=== PATIENT | female | born 1965 | race Caucasian/White ===

== ENCOUNTER 2017-01-01 20:34 | Inpatient (IN) | payer BC ==
--- NOTE | ~2017-01-01 | DS ---
Discharge Summary [facility] [address] [facility] [place]. [address] NAME: MICH MARIN : 61 STATUS : DIS Wilber PAT#: [id number] AGE: 51 ADM/REG DATE : 01/02/17 MR#: [id number] REPORT SERV DATE: 01/05/17 DICTATED BY: ALICIA RIBERA DATE: 01/04/17 REPORT STATUS : Draft TRANSCRIBED BY: JEWEL DATE: 01/04/17 ADMISSION DATE: 01/02/2017 DISCHARGE DATE: 01/04/2017 DISCHARGE DIAGNOSES: 1. Acute exacerbation of Meniere disease. 2. Status post LAGB explantation. 3. Status post sleeve gastrectomy. MEDICATIONS: At this time, she needs to resume her medications consisting of Bystolic 10 mg, carbidopa 25 mg/levodopa 100 mg, diazepam p.r.n., Dilaudid p.r.n., diphenhydramine 50 mg/mL injection p.r.n., Marinol p.r.n., meclizine 25 mg p.r.n., ondansetron 8 mg p.r.n., orphenadrine 30 mg/mL injection p.r.n. Promethazine 25 mg/mL injection p.r.n. Ropinirole 1 mg, sertraline 100 mg, topiramate 25 mg, and triamterene 37.5 mg/HCTZ 25 mg. CONDITION ON DISCHARGE: Stable and improved. DISPOSITION: Home. DIET: Clear liquid gastric diet without carbonation. ACTIVITIES: As tolerated adhering to previous postop restrictions. HISTORY: This is a 51-year-old, white female, admitted on 01/02/2017 to the emergency department with intractable nausea and vomiting. She recently underwent LAGB explantation with conversion to the sleeve gastrectomy. The vomiting created edema causing some chest pressure. She was successfully treated with IV fluids and IV Zofran, Dilaudid, and Ativan. Neurology was consulted on 01/03/2017, due to her history of Meniere disease, vestibular suppression, and geniculate neuralgia. Neurology has since signed off on her in stable condition. She is to continue her current treatment regimen. FOLLOWUP: The patient should keep her scheduled postop appointment in the office and should follow up with her neurologist in 1-2 weeks. DICTATED BY: Venus Alcantar NP [facility]/JEWEL Alicia Herrmann M.D. / [id number] CC: Alicia Ribera M.D. Discharge Summary [address] [facility] [address] NAME: MICH MARIN : 61 STATUS : DIS Wilebr PAT#: [id number] AGE: 51 ADM/REG DATE : 01/02/17 MR#: [id number] REPORT SERV DATE: 01/05/17 DICTATED BY: ALICIA RIBERA DATE: 01/04/17 REPORT STATUS : Draft TRANSCRIBED BY: JEWEL DATE: 01/04/17 Arjun Salter M.D.
--- NOTE | ~2017-01-01 | HP ---
History And Physical [place] [address] [facility] [place]. [address] NAME: MICH MARIN : 61 STATUS : ADM Wilber PAT#: [id number] AGE: 51 ADM/REG DATE : 01/02/17 MR#: [id number] REPORT SERV DATE: 01/02/17 DICTATED BY: ALICIA RIBERA DATE: 01/02/17 REPORT STATUS : Draft TRANSCRIBED BY: MODL DATE: 01/02/17 DATE OF ADMISSION: 01/02/2017 DICTATED BY: Venus Martinez RN, PAPER BAG PRESS OPERATOR-C, CBN. CHIEF COMPLAINT: Intractable nausea and vomiting with recent LAGB explantation and conversion to sleeve gastrectomy. HISTORY OF PRESENT ILLNESS: The patient is a 51-year-old white female, admitted through the emergency department this morning with complaints of intractable nausea and vomiting. She is 10-day status post LAGB explantation with conversion to sleeve gastrectomy at [facility] in [place], [place]. She was seen in office on , 12/29/2016, doing well after surgery, tolerating a clear liquid diet without vomiting. She had been advanced to a full liquid diet, and on Monday, she developed intermittent vomiting after trying protein shakes. She was able to tolerate clear liquids in between these episodes, but at some point, she had regular vomiting, limiting the amount of liquid she was able to tolerate. During this time, she continued to take her medications; however, she has not been crushing them. She additionally has a history of Meniere disease, vestibular suppression, and geniculate neuralgia, which causes regular nausea. She went without her diuretic for several days, which she feels was increasing her Meniere symptoms. PAST MEDICAL HISTORY: Past medical history significant for obesity, Meniere disease, vestibular suppression, geniculate neuralgia, anxiety, depression, hypertension, irritable bowel syndrome, and sleep apnea. PAST SURGICAL HISTORY: Original LAGB surgery in 2002, LAGB reposition and hiatal hernia repair in 2004 and band replacement in 2009 with lap-band leak, change to an APS. She underwent LAGB explantation with conversion to the sleeve gastrectomy on 12/23/2016 at [facility] in [place], [place]; cystopexy in 2011; partial hysterectomy in 2009; thigh lift in 2004; abdominoplasty in 2003; and cervical fusion in 1996. FAMILY HISTORY: Noncontributory. SOCIAL HISTORY: The patient denies nicotine use or EtOH use or abuse. MEDICATIONS: Bystolic 10 mg, carbidopa 25 mg/levodopa 100 mg, diazepam p.r.n., Dilaudid p.r.n., diphenhydramine 50 mg/mL injection p.r.n., Marinol p.r.n., meclizine 25 mg p.r.n., ondansetron 8 mg p.r.n., orphenadrine 30 mg/mL injection p.r.n., promethazine 25 mg/mL injection p.r.n., ropinirole 1 mg daily, sertraline 100 mg, topiramate 25 mg, triamterene/HCTZ 37.5 mg/25 mg daily. ALLERGIES: CIPRO, DARVOCET-N, PENICILLINS, AND PERCOCET. REVIEW OF SYSTEMS: GENERAL: This is a white female without apparent distress at this time. She reports current nausea and epigastric pain, which she rates 7/10. History And Physical [address] [address] NAME: MICH MARIN : 61 STATUS : ADM Wilber PAT#: [id number] AGE: 51 ADM/REG DATE : 01/02/17 MR#: [id number] REPORT SERV DATE: 01/02/17 DICTATED BY: ALICIA RIBERA DATE: 01/02/17 REPORT STATUS : Draft TRANSCRIBED BY: MODMariam DATE: 01/02/17 VITAL SIGNS: Stable and she is afebrile. HEENT: Pupils are equal and reactive to light. Extraocular movements are intact. Throat is clear. NECK: Supple without palpable masses. CHEST: Lungs are clear to auscultation. HEART: Regular rate and rhythm. ABDOMEN: Lap sites are healing. No erythema or drainage. Abdomen is nonrigid. Bowel sounds active x4 quadrants. No guarding. No masses. EXTREMITIES: Symmetrical and uses all extremities equally. LABORATORY DATA: CBC: White blood count 11.5, hemoglobin 14.3, hematocrit 42.0, platelets 364. Basic metabolic profile: Sodium 139, potassium 4.0, chloride 103, BUN 18, creatinine 1.08, GFR 68, glucose 170, calcium 10.1. Lipase 1026. CT of the abdomen and pelvis, mild wall-thickening of the distal esophagus. No free air or significant fluid collection noted. IMPRESSION: Intractable nausea and vomiting, recent LAGB explantation with conversion to laparoscopic sleeve gastrectomy secondary to advancement of diet/medications, Meniere disease. PLAN: The patient is n.p.o. with IV fluid hydration and treatment with IV proton pump inhibitor, antiemetic, pain medications, and antianxiety medication. We will plan to advance the patient's diet to clear liquid diet as tolerated and restart p.o. medications, but the patient will need to crash all meds. Plan on discharge home once tolerating p.o. liquids. REESE/JEWEL Alicia Herrmann M.D. / [id number] CC: Doug Puentes M.D.
--- NOTE | ~2017-01-01 | CN ---
Consultation Report [facility] [address] [place]. [address] NAME: MICH MARIN : 61 STATUS : ADM Wilber PAT#: [id number] AGE: 51 ADM/REG DATE : 01/02/17 MR#: [id number] REPORT SERV DATE: 01/04/17 DICTATED BY: TAMI CA DATE: 01/03/17 REPORT STATUS : Draft TRANSCRIBED BY: JEWEL DATE: 01/03/17 NEUROLOGY CONSULTATION DATE OF CONSULTATION: 01/03/2017 REASON FOR CONSULTATION: Meniere's disease. SURGEON: Win Maxwell M.D. HISTORY OF PRESENT ILLNESS: The patient is a 51-year-old female who is status post LAGB with conversion to sleeve gastrectomy, which occurred 10 days ago. She had this done at [facility] in [place], [place]. She seemed to be tolerating things well and was on a clear liquid diet. She was advanced to a full liquid diet when she started to have some nausea and vomiting. Her nausea and vomiting rapidly progressed to a daily occurrence and yesterday in the evening, she started to have symptoms of her Meniere's disease. Consequently, she came to the hospital for further evaluation and treatments. The patient mentions that she has struggled with Meniere's disease, she has been to several specialist. Currently, she has seen a specialist in [place], [place], who has her on a regimen that seems to work for the most part. She also has vestibular suppression and geniculate neuralgia. She has been through the [facility] in [place] and is on Topamax 200 mg daily, Benadryl 25 mg p.r.n., Marinol 5 mg t.i.d. p.r.n., Antivert 25 mg p.r.n., Phenergan 25 mg MS p.r.n., Maxzide 37.5/25 mg daily. A combination of these medications seem to work well for her. PAST MEDICAL HISTORY: Meniere's disease, vestibular suppression, geniculate neuralgia, anxiety, depression, hypertension, irritable bowel syndrome, obstructive sleep apnea (the patient wears a CPAP mask), restless legs syndrome, obesity, hypertension, chronic left ear pain (geniculate neuralgia), and chronic migraine. PAST SURGICAL HISTORY: LAGB in 2002, hiatal hernia repair in 2004, Lap Band replacement in 2009, conversion to sleeve gastrectomy in 2016, cystopexy 2011, partial hysterectomy 2009, thigh lift 2004, abdominoplasty 2003, cervical fusion 1996, endolymphatic sac compression and C3-C4 decompression. CURRENT MEDICATION LIST: ProAir inhaler 2 puffs p.r.n., Sinemet 25/100 mg one tablet at bedtime, Benadryl 25 mg p.r.n., Marinol 5 mg t.i.d. p.r.n., Dilaudid 2 mg q.6 h. p.r.n. pain, Antivert 25 mg b.i.d. p.r.n. vertigo, Bystolic 10 mg daily, Zofran 4 mg q.4 h. p.r.n. nausea, Phenergan 25 mg rectally every six hours p.r.n., Requip 1 mg daily, Requip 2 mg at bedtime, Zoloft 100 mg q.a.m., Topamax 200 mg q.p.m., and Maxzide 37.5/25 mg every day. ALLERGIES: HYDROCODONE, CODEINE, PENICILLIN, DARVON, CIPRO, TOPAMAX, AND NSAIDS. SOCIAL HISTORY: The patient is . She has 2 sons. She is unable to work due to her Meniere's. She does not smoke, drink alcohol, or use illicit. Consultation Report [address] [place]. [address] NAME: MICH MARIN : 61 STATUS : ADM Wilber PAT#: [id number] AGE: 51 ADM/REG DATE : 01/02/17 MR#: [id number] REPORT SERV DATE: 01/04/17 DICTATED BY: TAMI CA DATE: 01/03/17 REPORT STATUS : Draft TRANSCRIBED BY: MODMariam DATE: 01/03/17 FAMILY HISTORY: The patient's mother is 77 years old. She is alive and healthy. Her father is 75 years old and also healthy. She has one older brother, who is killed in a domestic dispute and one younger brother who is diabetic and obese. REVIEW OF SYSTEMS: For pertinent positives, please refer to the HPI. PHYSICAL EXAMINATION: GENERAL: The patient is a 51-year-old female who stands 5 feet 2 inches tall and weighs 223 pounds. She is afebrile. Heart rate 70, respiratory rate 16, O2 sats on room air 95%, blood pressure 95/52. NEURO: The patient is alert. She is oriented x4 and pleasant, communicates appropriately. Pupils 5 mm. PERRLA. Cranial nerves 2 through 12 are intact. She can move all extremities x4. There is no focal deficits noted. NECK: No carotid bruits, JVD, or thyromegaly. CHEST: Lung sounds clear. CARDIAC: Regular rate and rhythm. LABORATORY DATA: CBC relatively normal. White count is mildly elevated at 11.5. BMP relatively normal although serum bicarbonate 18 and glucose of 170, lipase 1026. Chest x- ray, no acute changes. ASSESSMENT/PLAN: 1. Acute exacerbation of Meniere's disease. At this point, the patient is comfortable and I will make no changes in her medications and p.r.n. medications. 2. Vestibular suppression. 3. Geniculate neuralgia. 4. Mild leukocytosis with an elevated lipase, this will be managed per attending. 5. Mild metabolic acidosis, most likely due to Topamax therapy. Thank you again for including us in consultation. At this point, we will sign off, but we are available on a p.r.n. basis if the patient needs further assistance. Thank you again for including us in consultation. We will continue to follow with you. SUKH/JEWEL KELLY Membreno / [id number] CC: Consultation Report [address] [place]. [address] NAME: MICH MARIN : 61 STATUS : ADM Wilber PAT#: [id number] AGE: 51 ADM/REG DATE : 01/02/17 MR#: [id number] REPORT SERV DATE: 01/04/17 DICTATED BY: TAMI CA DATE: 01/03/17 REPORT STATUS : Draft TRANSCRIBED BY: JEWEL DATE: 01/03/17 Doug Puentes M.D.
[~2017-01-01 20:34] MED LIST: AMERGE2.5 MG PO; BEN25 PO; BEN50P IM; BYSTOLIC10 MG PO; CEFT5 PO; COMP10B PO; COMPRO25 MG PR; COZ50 PO; DEPAK250ER PO; DEPAKOTE PO; DIL2TAB PO; DRAMAMINE25 MG PO; HYCODAN1 M1 PO; ICY HOT51 TOP; K-TABS10 MEQ PO; LEVAQUIN750 MG PO; LORTAB10 PO; MAGOX4 PO; MARI5 PO; MAX25 PO; MCZ25 PO; MIRALAXPKT PO; OFLOXACIN OT; OTC POTASSIUM PO; P10; P10 PO; P5 PO; PEP20 PO; PHENADOZ25 MG RE; PHENERGAN 2525 MG/M1 IM; PHENERGAN 2525 MG/ML IM; POTASSIUM OTC PO; POTASSIUM95 MG PO; PR25 PO; PR25R PR; PROAIR HFA INH; PROAIR HFA PO; PROTONIX PO; PROVHFA INH; REQUIP1 PO; REQUIP2 PO; REQUIP5 PO; SIN25 PO; SINGULAIR1 PO; STERAPRED DS10 MG; ULTRAM50 PO; V2 PO; V5 PO; VICODINTAB PO; VIVELLE SY0.1 MG/24 TOP; VIVELLE-DOT0.025 MG TOP; Z-PAK PO; ZOFRAN2ML IM; ZOFRAN4 PO; ZOFRAN8 PO; ZOFRANODT8 PO; ZOL100 PO; ZOL50 PO; ZOLOFT25 MG PO; ZYRTEC ALLGY10 MG PO; [UNRECOGNIZED DRUG - OTHER] PO
[2017-01-01 21:25] LABS: BASOPHILS 0.7 %; BASOPHILS ABSOLUTE 0.08 10/3/uL (0.0-0.16); EOSINOPHILS 0.4 %; EOSINOPHILS ABSOLUTE 0.05 10/3/uL (0.0-0.53); HEMOGLOBIN 14.3 g/dL (12.0-16.0); IMMATURE GRANULOCYTES ABSOLUTE 0.11 10/3/uL (0.0-0.11); LYMPHOCYTES 12.9 %; LYMPHOCYTES ABSOLUTE 1.48 10/3/uL (0.67-4.30); MEAN CORPUSCULAR HEMOGLOB 30.3 pg (26.0-34.0); MEAN PLATELET VOLUME 9.5 fL (9.2-13.0); MONOCYTES 2.6 %; NEUTROPHILS 82.4 %; NEUTROPHILS ABSOLUTE 9.47 10/3/uL (2.02-8.40); RBC DISTRIBUTION WIDTH 13.4 % (12.0-16.0); RED CELL COUNT 4.72 10/6/uL (4.0-5.6)
[2017-01-01 21:26] LABS: ER CBC TAT 0 Hrs 08 Mins; MANUAL DIFF NO %; PLATELET COUNT 364 10/3/uL (150-400); WHITE BLOOD CELLS 11.5 10/3/uL (4.5-10.5)
[2017-01-01 21:43] LABS: A/G RATIO 0.9 (0.7-1.9); ALBUMIN 3.9 G/DL (3.5-5.0); ALKALINE PHOSPHATASE 102 U/L (45-117); CALCIUM, SERUM 10.1 MG/DL (8.5-10.4); CHLORIDE, SERUM 103 MMOL/L (96-112); CREATININE 1.08 MG/DL (0.55-1.02); GFR AFRICAN AMERICAN 68 ML/MIN (>=60); GFR NON AFRICAN AMERICAN 59 ML/MIN (>=60); SGOT(AST) 22 U/L (5-40); SGPT(ALT) 28 U/L (5-65); SODIUM, SERUM 139 MMOL/L (135-148); TOTAL BILIRUBIN 0.5 MG/DL (0-1.2)
[2017-01-01 21:47] LABS: BUN (BLOOD UREA NITROGEN) 18 MG/DL (6-23); CO2 (CARBON DIOXIDE) 18 MMOL/L (24-34); GLOBULIN 4.5 G/DL (2.5-4.1); GLUCOSE, SERUM 170 MG/DL (60-99); TOTAL PROTEIN 8.4 G/DL (6.0-8.5)
[2017-01-02 03:52] LABS: ASCORBIC ACID (UR NOT ORDER) 20 (NEG); BILIRUBIN, URINE NEGATIVE (NEG); ER URINALYSIS TAT 0 Hrs 00 Mins; KETONE, URINE 80 MG/DL (NEG); LEUKOCYTE ESTERASE(NOT OR NEG (NEG); NITRITE (URINE) NEG (NEG); WBC (NOT ORDERED) (RFLEX) 2 (0-5)
[2017-01-02] MEDS ORDERED: TOPAMAX200 MG PO (09:29)
[2017-01-04] MEDS ORDERED: SUCR PO (12:46)
[2017-05-02] MEDS ORDERED: PROAIR HFA INH (11:34)
[2017-05-02] MEDS ORDERED: DIL4TAB PO (11:37)
[2017-05-02] MEDS ORDERED: DIL2AMP IM (11:39)
== END 2017-01-04 15:45 | disposition home or self-care (01) | DRG 149 ==
LOC: ER 20:34 → 4SO 01-02 05:49
PROVIDERS: Specialist
DX: H81.09 Meniere's disease, unspecified ear (principal); Z99.81 Dependence on supplemental oxygen; R11.2 Nausea with vomiting, unspecified; G58.8 Other specified mononeuropathies; F41.9 Anxiety disorder, unspecified; F32.9 Major depressive disorder, single episode, unspecified; I10 Essential (primary) hypertension; K58.9 Irritable bowel syndrome, unspecified; G89.29 Other chronic pain; G47.33 Obstructive sleep apnea (adult) (pediatric); G25.81 Restless legs syndrome; H92.02 Otalgia, left ear; E66.01 Morbid (severe) obesity due to excess calories; Z88.0 Allergy status to penicillin; Z88.1 Allergy status to other antibiotic agents; Z88.5 Allergy status to narcotic agent; Z98.84 Bariatric surgery status; Z98.890 Other specified postprocedural states
CPT/HCPCS: 71010; 74176; 80053; 81001; 83690; 84703; 85025; 93005; 96374; 96375; 96376; 99285; A9270-GY; C9113; G0378; J1170; J2405; J2550

== ENCOUNTER 2017-01-10 04:53 | Inpatient (IN) | payer BC ==
--- NOTE | ~2017-01-10 | IDS ---
Interim Discharge Summary [facility] [address] [place]. [address] NAME: MICH MARIN : 61 STATUS : ADM Wilber PAT#: [id number] AGE: 51 ADM/REG DATE : 01/10/17 MR#: [id number] REPORT SERV DATE: 01/16/17 DICTATED BY: NELLIE BERNAL DATE: 01/15/17 REPORT STATUS : Draft TRANSCRIBED BY: MODL DATE: 01/15/17 ADMISSION DATE: 01/10/2017 DISCHARGE DATE: INTERIM DISCHARGE DIAGNOSES: 1. Meniere's disease. 2. Intractable nausea and vomiting secondary to Meniere's disease. 3. Hypokalemia. 4. Obesity. 5. Obstructive sleep apnea. 6. Hypertension. 7. Mild metabolic acidosis. 8. Acute renal insufficiency. HOSPITAL COURSE: The patient was admitted for further management of intractable nausea and vomiting secondary to Meniere's disease. Supportive treatment with IV fluids, which resolved acute renal insufficiency. Neurology has been following with us. Further details per Neurology note. The patient has been on IV antiemetics, thiamine, and Topamax. Vomiting has resolved with conservative management. We are now titrating the patient off IV pain medication. IV antiemetics. Maxzide was restarted on 01/15/2017. Unable to restart prior due to borderline blood pressure and renal insufficiency. PLAN: Plan is to have patient on home regimen in 24 to 48 hours. Decrease Ativan as directed. Decrease pain regimen. Change Phenergan to p.o. The patient medically stable once cleared by Neurology in 24 to 48 hours. Further management per clinical course. ISMAEL/JEWEL Ino Chan MD / [id number] CC: MD Arjun Leija M.D.
--- NOTE | ~2017-01-10 | DS ---
Discharge Summary [place] [address] [facility] [place]. [address] NAME: MICH MARIN : 61 STATUS : DIS IN PAT#: [id number] AGE: 51 ADM/REG DATE : 01/10/17 MR#: [id number] REPORT SERV DATE: 01/19/17 DICTATED BY: BYRON OWENS DATE: 01/18/17 REPORT STATUS : Draft TRANSCRIBED BY: MODMariam DATE: 01/18/17 ADMISSION DATE: 01/10/2017 DISCHARGE DATE: 01/18/2017 DISCHARGE DIAGNOSES: Include: 1. Meniere disease and vertigo. 2. Intractable nausea and vomiting. 3. Acute kidney injury, which has resolved, most recent creatinine 1.04. 4. Migraine headaches. 5. Obesity status post recent gastric sleeve surgery on 12/23/2016. 6. History of obstructive sleep apnea and restless legs syndrome. 7. Hypertension. DISCHARGE MEDICATIONS: As follows: Sinemet 25/100 one tab at bedtime; Antivert 25 mg twice a day p.r.n. for vertigo; Phenergan 25 mg IM every hours p.r.n. for nausea; Bystolic 10 mg p.o. daily; Zofran 8 mg p.o. every hours p.r.n. for nausea; Requip 1 mg daily in the morning, Requip 2 mg p.o. at bedtime; Zoloft 100 mg daily; Topamax 100 mg p.o. with supper; Maxzide 25 mg/37.5 mg tab daily; multivitamin one tab daily; ProAir inhaler two puffs inhaled three times a day p.r.n. for shortness of breath; Valium 5 mg daily p.r.n. for dizziness; Benadryl 50 mg IM every eight hours p.r.n. for migraines; Zofran 8 mg IM every eight hours p.r.n. for nausea; Phenergan suppositories p.r.n.; Marinol 5 mg every eight hours p.r.n. for nausea and vomiting; Dilaudid 2 mg every 6 hours p.r.n. for migraines; Norflex 30 mg IM q.12 hours p.r.n. for migraines. HISTORY OF PRESENT ILLNESS: A 51-year-old, white female, who originally presented with intractable nausea and vomiting. Please see initial H and P of Dr. Scarlet Quiros. This patient is admitted to the Hospitalist Service for further evaluation and treatment. She was given IV hydration, p.r.n. antiemetic control, pain control, and lab work was ordered and followed. CONSULTANTS DURING THIS ADMISSION: Include Neurology Dr. Nancy Smith. Please also see the interim discharge summary of Dr. Ino Chan. PROCEDURES AND IMAGING DURING THIS ADMISSION: Include a CT of the abdomen and pelvis showing a prior gastric sleeve bypass, stable. No other acute GI or obstruction. Nonobstructing kidney stone on the right and prior hysterectomy. CONTINUATION OF HOSPITAL COURSE: I began seeing the patient on 01/17/2017 where she was still having some nausea and an episode of emesis, however, it was somewhat improved according to the patient overall. She was given a trial of Reglan IV x3 doses but the patient actually only received two doses of Reglan. Her symptoms improved the following day, on 01/18/2017. She was able to eat dinner and breakfast with no problems. Her nausea had subsided. No vomiting. She was able to ambulate in the room without difficulty. Orthostatics were checked which were within normal limits, and she was felt safe for discharge home on 01/18/2017 with the above medication regimen, and I have instructed her to follow up with her primary care, Dr. Salter in three to four weeks and to follow up Discharge Summary [address] [address] NAME: MICH MARIN : 61 STATUS : DIS IN PAT#: [id number] AGE: 51 ADM/REG DATE : 01/10/17 MR#: [id number] REPORT SERV DATE: 01/19/17 DICTATED BY: BYRON OWENS DATE: 01/18/17 REPORT STATUS : Draft TRANSCRIBED BY: JEWEL DATE: 01/18/17 outpatient with Psychiatry given her lengthy history of antidepressant use. The patient was agreement with this plan going forward. Questions were answered at bedside. Please note, greater than 30 minutes was spent on this discharge for medication teaching, followup planning, and further disposition. COREY/JEWEL Byron Owens NP / [id number] CC: Doug Key M.D.
--- NOTE | ~2017-01-10 | HP ---
History And Physical [facility] [address] [facility] [place]. [address] NAME: MICH MARIN : 61 STATUS : ADM Wilber PAT#: [id number] AGE: 51 ADM/REG DATE : 01/10/17 MR#: [id number] REPORT SERV DATE: 01/10/17 DICTATED BY: GERARD QUIROS DATE: 01/10/17 REPORT STATUS : Draft TRANSCRIBED BY: MODMariam DATE: 01/10/17 DATE OF ADMISSION: 01/10/2017 CHIEF COMPLAINT: Intractable nausea, vomiting. HISTORY OF PRESENT ILLNESS: The patient is a very pleasant, 51-year-old, white female, who has also with a history of recent conversion of her lap band to gastric sleeve on 12/23/2016. She was admitted on January 02 with intractable nausea and vomiting. It was felt that some of this is due to her Meniere disease. She was seen by Neurology and ultimately she went home, was better. She states soon after leaving, she developed recurrent nausea, vomiting, dizziness, feeling poor, having headache, just cannot keep anything down, dry heaving; when she started dry heaving, then she started having some mid abdominal pain. She presented to [facility] last evening with the above aforementioned complaints. She has had no fevers or chills. No diarrhea. She saw Dr. Manzano yesterday and swallowed some contrast. It looks like everything passed through according to her and she states, she also had some laboratory work done as well and was given some IV fluids and some IV Phenergan. She ultimately went home, but continued to have nausea and vomiting and returned today. PAST MEDICAL HISTORY: 1. Meniere's. 2. Recent gastric sleeve, converted from a lap band. 3. Morbid obesity. 4. Vestibular suppression. 5. Geniculate neuralgia. 6. Anxiety. 7. Depression. 8. Hypertension. 9. IBS. 10.CORI. 11.Migraines. ALLERGIES: DARVOCET, PENICILLIN, PERCOCET, AND CIPRO. SOCIAL HISTORY: She is . Does not drink or smoke. FAMILY HISTORY: Her brother had diabetes and obesity. PAST SURGICAL HISTORY: She had a gastric band, then converted to a gastric sleeve. She had a hernia repair, cystopexy, partial hysterectomy, abdominoplasty, and a cervical fusion. HOME MEDICATIONS: Pending. REVIEW OF SYSTEMS: Full ten-point review of systems obtained. Pertinent positives mentioned in the HPI. History And Physical [address] [place]. [address] NAME: MICH MARIN : 61 STATUS : ADM Wilber PAT#: [id number] AGE: 51 ADM/REG DATE : 01/10/17 MR#: [id number] REPORT SERV DATE: 01/10/17 DICTATED BY: GERARD QUIROS DATE: 01/10/17 REPORT STATUS : Draft TRANSCRIBED BY: JEWEL DATE: 01/10/17 PHYSICAL EXAMINATION: CURRENT VITAL SIGNS: Are as follows: BP 112/68, sats 96%, pulse 98, respiratory rate 19, temperature was 97.9. GENERAL: Morbidly obese white female, in no apparent distress. HEENT: Normocephalic, atraumatic. Pupils are equal, round, and reactive. TMs are clear bilaterally. Throat is clear. NECK: Supple. HEART: Regular rate and rhythm. LUNGS: Grossly clear. ABDOMEN: Soft, nontender, nondistended. She has some healing incisions, looked quite good. She has bowel sounds. EXTREMITIES: Warm and dry. SKIN: Intact without obvious rash or lesion. LABORATORY AND X-RAY: Electrolyte panel shows electrolytes are normal. Glucose is 115. CBC is essentially normal. Followup BMP today that was from yesterday; her potassium was low at 3.2 with a CO2 of 20 and a glucose of 145. LFTs are otherwise normal. Lipase was 1104. Urinalysis today is negative other than some ketones. ASSESSMENT/PLAN: 1. Intractable nausea and vomiting with history of Meniere disease. Certainly, this could be the exacerbating issue. Difficult to control when she cannot keep her p.o. medications down. I am going to admit her to the hospital and provide aggressive fluid resuscitation. We will provide some p.r.n. medications, which I think should help. We will schedule her Zofran, provide p.r.n. Phenergan. We will also add some IV Ativan as needed, and she is requesting Marinol, which has helped tremendously in the past. We are going to write for that. If she has pain, she can take some IV Dilaudid. She does have migraines and her head turning. We will have Neurology see her in consultation. Given that she does have some mild abdominal pain, and she recently had a surgical procedure on her abdomen, I think we are obliged to do a CT scan of her abdomen and pelvis to rule out obstruction or other causes. Her lipase was mildly up in the 1100 range. We will check an amylase and follow up her CT scan to make sure there is not some component of pancreatitis, although her pain is not consistent with this. 2. Hypokalemia, replace. 3. Meniere disease with possible exacerbation. See #1. 4. Obesity. 5. Geniculate neuralgia. She does have some ear pain currently. 6. Anxiety and depression. 7. Obstructive sleep apnea. 8. Deep venous thrombosis prophylaxis with subcutaneous Lovenox. 9. Disposition, pending above aforementioned plan and workup. CHERRI/JEWEL Gerard Rojas History And Physical [address] [address] NAME: MICH MARIN : 61 STATUS : ADM Wilber PAT#: [id number] AGE: 51 ADM/REG DATE : 01/10/17 MR#: [id number] REPORT SERV DATE: 01/10/17 DICTATED BY: GERARD QUIROS DATE: 01/10/17 REPORT STATUS : Draft TRANSCRIBED BY: JEWEL DATE: 01/10/17 Doug Quiros / [id number] CC: MD Arjun Leija M.D. Jaime Ponce-Portugal, M.D.
--- NOTE | ~2017-01-10 | CN ---
Consultation Report [facility] [address] [place]. [address] NAME: MICH MARIN : 61 STATUS : ADM Wilber PAT#: [id number] AGE: 51 ADM/REG DATE : 01/10/17 MR#: [id number] REPORT SERV DATE: 01/10/17 DICTATED BY: DATE: REPORT STATUS : Draft TRANSCRIBED BY: MODL DATE: 01/10/17 NEUROLOGY CONSULTATION DATE OF CONSULTATION: 01/10/2017 REASON FOR CONSULT: Intractable nausea and vomiting, history of Meniere's disease. HISTORY OF PRESENT ILLNESS: This is a 51-year-old white female with a history of Meniere's disease, seen currently by specialists in [place], presented to [facility] secondary to intractable nausea and vomiting. The patient does have a history of recent gastric sleeve as well as a gastric banding removal with the patient afterwards was noted to have intractable nausea and vomiting, subsequently treated with IV medication with stabilization of the symptom and discharged. The patient reports the most recent symptoms started roughly three to four days ago with the patient denies noticeable aggravating or relieving factors. The patient does report some mild worsening of tinnitus as well as vertigo sensation with the patient's symptom worsened when the patient turning to the left. Otherwise, the patient denies any focal weakness, but does report some mild generalized weakness. Denies any hearing loss and denies any ear fullness at the time of evaluation. The patient does denies any dysarthria and denies any aphasia. She denies any significant abdominal pain, except when the patient has severe nausea and vomiting. The patient has some mild abdominal discomfort. The patient does have a history of multiple similar events in the past associated with exacerbation of Meniere's disease, usually treated with a combination of IV Zofran, Phenergan, benzodiazepine as well as p.o. Marinol. With the patient at baseline on hydrochlorothiazide, but does not appear to have a history of Lasix treatment. The patient reports a history of ear fullness sensation with volume overloading which the patient currently denies. Otherwise, the patient denies any other recent illness, fever, chill, nausea, and vomiting, any other changes in medication recently. PAST MEDICAL HISTORY: The patient does have past medical history of recent gastric sleeve surgery as well as Meniere's disease, vestibular suppression, as well as geniculate neuralgia, anxiety, depression, irritable bowel syndrome, obstructive sleep apnea, restless legs syndrome, obesity, hypertension, chronic left ear pain secondary to geniculate neuralgia and chronic migraine, and history of previous gastric banding and removal as well as recent gastric sleeve. SOCIAL HISTORY: Denies tobacco, alcohol, or recreational drug usage. FAMILY HISTORY: Significant for diabetes and obesity. Otherwise, no other significant family history. ALLERGIES: THE PATIENT WAS NOTED TO HAVE A HISTORY OF ALLERGY TO PENICILLIN, CIPROFLOXACIN, LORCET, PERCOCET, NONSTEROIDAL ANTI-INFLAMMATORY MEDICATION, PROPOXYPHENE. HOME MEDICATIONS: The patient's home medications consist of albuterol, Sinemet, Valium, Consultation Report [address] [place]. [address] NAME: MICH MARIN : 61 STATUS : ADM Wilber PAT#: [id number] AGE: 51 ADM/REG DATE : 01/10/17 MR#: [id number] REPORT SERV DATE: 01/10/17 DICTATED BY: DATE: REPORT STATUS : Draft TRANSCRIBED BY: MODL DATE: 01/10/17 Benadryl, Marinol, Dilaudid, meclizine, Bystolic, Zofran, Norflex, Phenergan, Requip, Zoloft, Topamax, Maxzide, and ondansetron injection. REVIEW OF SYSTEMS: Otherwise, negative except for those mentioned in the HPI. PHYSICAL EXAMINATION: VITAL SIGNS: The patient noted to have vital signs with T-max of 98.2, heart rate of 87 to 90, respiration of 17 to 18, blood pressure of 118 to 155 over 69 to 84. GENERAL: The patient is well developed, well nourished, in no acute distress. CARDIOVASCULAR: Regular rate and rhythm. No carotid bruits were otherwise auscultated. PULMONARY: Clear to auscultation bilaterally. ABDOMEN: No abdominal tenderness was noted at the time of evaluation. No rebound or guarding was appreciated. NEUROLOGICAL EXAMINATION: Generally, the patient is alert and oriented x3 to person, place, year, and month and follows simple and 2-step commands. No dysarthria or aphasia was otherwise appreciated. Intact registration and recall. Cranial nerves II through XII, pupils equal, round, and reactive to light. Intact extraocular eye movement at the time of evaluation, however, the patient was noted to have trace nystagmus with a leftward gaze movement. Intact blink to threat response. Symmetrical facial expression and sensation. Midline tongue. Normal palatal movement. Does not appear to have any decreased hearing at the time of evaluation. 5/5 bilateral upper and lower extremity strength. Symmetrical sensation bilaterally. Normal [id number] examination without ataxia. 2+ reflexes bilaterally. Gait was not evaluated secondary to the patient's vertigo sensation as well as nausea and vomiting. LABORATORY STUDY: Demonstrates sodium 142, potassium of 3.2, chloride of 106, bicarb of 20, BUN of 8, creatinine of 0.93, glucose of 145, calcium of 8.8. Amylase level 145 and a lipase of 1104. White blood cell count of 9.6, hemoglobin of 13.2, hematocrit of 38.8, and platelet count of 333. Urinalysis demonstrated negative leukocyte esterase, negative nitrite. CT scan of the abdomen and pelvis obtained on 01/02/2017 demonstrated no acute process. No comments of pancreatitis. The patient does currently have CT scan of the abdomen and pelvis pending. IMPRESSION: 1. Nausea and vomiting, recent gastric sleeve surgery with nausea and vomiting afterwards. The patient's most recent episode of nausea and vomiting occurred roughly three to four days ago with the patient noted to have similar events with the previous Meniere's disease exacerbation that was treated by IV Zofran, Phenergan, benzodiazepine as well as the p.o. Marinol. We will add IV thiamine to current regimen. The patient was also noted to have persistent elevation of her lipase as well as amylase compared to the previous hospitalization also concerning for possible elevation of her lipase and Consultation Report [address] [place]. [address] NAME: MICH MARIN : 61 STATUS : ADM Wilber PAT#: [id number] AGE: 51 ADM/REG DATE : 01/10/17 MR#: [id number] REPORT SERV DATE: 01/10/17 DICTATED BY: DATE: REPORT STATUS : Draft TRANSCRIBED BY: MODL DATE: 01/10/17 amylase secondary to intractable nausea and vomiting versus a recent gastric surgery versus a possible pancreatitis. However, on examination, the patient does not have any abdominal tenderness to palpation and the previous CT scan is otherwise negative and making pancreatitis seems less likely. 2. Meniere's disease. The patient is to follow up with neurologist at [place] alter stabilization of acute symptom. RECOMMENDATION: 1. IV Zofran and Phenergan. 2. IV Ativan. 3. Continue Marinol. 4. We will start the patient on IV thiamine. 5. CT abdomen and pelvis pending. 6. Repeat amylase and lipase level in the morning. CCH/MODL Juan Antonio Smith MD / [id number] CC: MD Arjun Leija M.D.
[2017-01-10 01:20] LABS: BASOPHILS 0.6 %; BASOPHILS ABSOLUTE 0.06 10/3/uL (0.0-0.16); EOSINOPHILS 1.9 %; EOSINOPHILS ABSOLUTE 0.18 10/3/uL (0.0-0.53); HEMATOCRIT 38.8 % (36.0-48.0); HEMOGLOBIN 13.2 g/dL (12.0-16.0); IMMATURE GRANULOCYTES 0.3 %; IMMATURE GRANULOCYTES ABSOLUTE 0.03 10/3/uL (0.0-0.11); LYMPHOCYTES 15.5 %; LYMPHOCYTES ABSOLUTE 1.48 10/3/uL (0.67-4.30); MEAN CORPUSCULAR HEMOGLOB 30.2 pg (26.0-34.0); MEAN CORPUSCULAR VOLUME 88.8 fL (80-100); MEAN PLATELET VOLUME 9.4 fL (9.2-13.0); MONOCYTES ABSOLUTE 0.38 10/3/uL (0.21-1.20); NEUTROPHILS 77.7 %; NEUTROPHILS ABSOLUTE 7.42 10/3/uL (2.02-8.40); PLATELET COUNT 337 10/3/uL (150-400); RBC DISTRIBUTION WIDTH 13.8 % (12.0-16.0); RED CELL COUNT 4.37 10/6/uL (4.0-5.6); WHITE BLOOD CELLS 9.6 10/3/uL (4.5-10.5)
[2017-01-10 01:24] LABS: ER CBC TAT 0 Hrs 05 MinsNP; MANUAL DIFF NO %
[2017-01-10 01:36] LABS: ALBUMIN 3.8 G/DL (3.5-5.0); BUN (BLOOD UREA NITROGEN) 8 MG/DL (6-23); CALCIUM, SERUM 8.8 MG/DL (8.5-10.4); CHLORIDE, SERUM 106 MMOL/L (96-112); CREATININE 0.93 MG/DL (0.55-1.02); GFR AFRICAN AMERICAN 81 ML/MIN (>=60); GFR NON AFRICAN AMERICAN 70 ML/MIN (>=60); POTASSIUM, SERUM 3.2 MMOL/L (3.5-5.3); SGOT(AST) 18 U/L (5-40); SGPT(ALT) 29 U/L (5-65); SODIUM, SERUM 142 MMOL/L (135-148); TOTAL BILIRUBIN 0.5 MG/DL (0-1.2); TOTAL PROTEIN 7.1 G/DL (6.0-8.5)
[2017-01-10 01:40] LABS: A/G RATIO 1.2 (0.7-1.9); ALKALINE PHOSPHATASE 90 U/L (45-117); CO2 (CARBON DIOXIDE) 20 MMOL/L (24-34); GLOBULIN 3.3 G/DL (2.5-4.1); GLUCOSE, SERUM 145 MG/DL (60-99)
[~2017-01-10 04:53] MED LIST changes: +SUCR PO; +TOPAMAX200 MG PO
[2017-01-10 05:48] LABS: ASCORBIC ACID (UR NOT ORDER) 40 (NEG); BILIRUBIN, URINE NEGATIVE (NEG); ER URINALYSIS TAT 0 Hrs 00 Mins; KETONE, URINE 80 MG/DL (NEG); LEUKOCYTE ESTERASE(NOT OR NEG (NEG); NITRITE (URINE) NEG (NEG); WBC (NOT ORDERED) (RFLEX) 3 (0-5)
[2017-01-10] MEDS ORDERED: REQUIP2 PO (10:12)
[2017-01-10] MEDS ORDERED: REQUIP1 PO (10:12)
[2017-01-10] MEDS ORDERED: ZOL100 PO (10:13)
[2017-01-10] MEDS ORDERED: MAX25 PO (10:13)
[2017-01-10] MEDS ORDERED: TOPAMAX100 PO (10:14)
[2017-01-10] MEDS ORDERED: SIN25 PO (10:14)
[2017-01-10] MEDS ORDERED: BYSTOLIC10 MG PO (10:15)
[2017-01-10] MEDS ORDERED: MCZ25 PO (10:16)
[2017-01-10] MEDS ORDERED: MULTIVIT/MIN PO (10:16)
[2017-01-10] MEDS ORDERED: PROAIR HFA INH (10:17)
[2017-01-10] MEDS ORDERED: V5 PO (10:18)
[2017-01-10] MEDS ORDERED: BEN50P IM (10:19)
[2017-01-10] MEDS ORDERED: ZOFRANODT8 PO (10:20)
[2017-01-10] MEDS ORDERED: ONDANSETRON IM (10:20)
[2017-01-10] MEDS ORDERED: PHENERGAN 2525 MG/M1 IM (10:21)
[2017-01-10] MEDS ORDERED: PR25R PR (10:21)
[2017-01-10] MEDS ORDERED: [UNRECOGNIZED DRUG - OTHER] IM (10:22)
[2017-01-10] MEDS ORDERED: MARI5 PO (10:22)
[2017-01-10] MEDS ORDERED: DIL2TAB PO (10:23)
[2017-01-11 05:39] LABS: BASOPHILS 0.1 %; BASOPHILS ABSOLUTE 0.01 10/3/uL (0.0-0.16); EOSINOPHILS 0.1 %; EOSINOPHILS ABSOLUTE 0.01 10/3/uL (0.0-0.53); HEMATOCRIT 35.1 % (36.0-48.0); HEMOGLOBIN 11.4 g/dL (12.0-16.0); IMMATURE GRANULOCYTES 0.2 %; IMMATURE GRANULOCYTES ABSOLUTE 0.03 10/3/uL (0.0-0.11); LYMPHOCYTES 17.8 %; LYMPHOCYTES ABSOLUTE 2.24 10/3/uL (0.67-4.30); MEAN CORPUS HGB CONC 32.5 g/dL (32.0-36.0); MEAN CORPUSCULAR HEMOGLOB 29.7 pg (26.0-34.0); MEAN CORPUSCULAR VOLUME 91.4 fL (80-100); MEAN PLATELET VOLUME 9.1 fL (9.2-13.0); MONOCYTES 5.6 %; MONOCYTES ABSOLUTE 0.71 10/3/uL (0.21-1.20); NEUTROPHILS 76.2 %; PLATELET COUNT 265 10/3/uL (150-400); RBC DISTRIBUTION WIDTH 14.6 % (12.0-16.0); RED CELL COUNT 3.84 10/6/uL (4.0-5.6); WHITE BLOOD CELLS 12.6 10/3/uL (4.5-10.5)
[2017-01-11 05:41] LABS: MANUAL DIFF NO %
[2017-01-11 05:58] LABS: BUN (BLOOD UREA NITROGEN) 7 MG/DL (6-23); CALCIUM, SERUM 8.6 MG/DL (8.5-10.4); CHLORIDE, SERUM 114 MMOL/L (96-112); CO2 (CARBON DIOXIDE) 22 MMOL/L (24-34); CREATININE 0.91 MG/DL (0.55-1.02); GFR AFRICAN AMERICAN 83 ML/MIN (>=60); GFR NON AFRICAN AMERICAN 72 ML/MIN (>=60); POTASSIUM, SERUM 3.5 MMOL/L (3.5-5.3); SODIUM, SERUM 148 MMOL/L (135-148)
[2017-01-11 05:59] LABS: GLUCOSE, SERUM 100 MG/DL (60-99)
[2017-01-12 04:42] LABS: BASOPHILS 0.4 %; BASOPHILS ABSOLUTE 0.04 10/3/uL (0.0-0.16); EOSINOPHILS 1.4 %; EOSINOPHILS ABSOLUTE 0.15 10/3/uL (0.0-0.53); HEMATOCRIT 33.9 % (36.0-48.0); HEMOGLOBIN 11.1 g/dL (12.0-16.0); IMMATURE GRANULOCYTES 0.4 %; IMMATURE GRANULOCYTES ABSOLUTE 0.04 10/3/uL (0.0-0.11); LYMPHOCYTES 25.7 %; LYMPHOCYTES ABSOLUTE 2.77 10/3/uL (0.67-4.30); MEAN CORPUS HGB CONC 32.7 g/dL (32.0-36.0); MEAN CORPUSCULAR HEMOGLOB 30.2 pg (26.0-34.0); MEAN CORPUSCULAR VOLUME 92.4 fL (80-100); MEAN PLATELET VOLUME 9.7 fL (9.2-13.0); MONOCYTES 5.2 %; MONOCYTES ABSOLUTE 0.56 10/3/uL (0.21-1.20); NEUTROPHILS 66.9 %; NEUTROPHILS ABSOLUTE 7.22 10/3/uL (2.02-8.40); PLATELET COUNT 262 10/3/uL (150-400); RBC DISTRIBUTION WIDTH 14.9 % (12.0-16.0); RED CELL COUNT 3.67 10/6/uL (4.0-5.6); WHITE BLOOD CELLS 10.8 10/3/uL (4.5-10.5)
[2017-01-12 04:45] LABS: MANUAL DIFF NO %
[2017-01-12 05:22] LABS: BUN (BLOOD UREA NITROGEN) 6 MG/DL (6-23); CALCIUM, SERUM 8.7 MG/DL (8.5-10.4); CHLORIDE, SERUM 115 MMOL/L (96-112); CO2 (CARBON DIOXIDE) 21 MMOL/L (24-34); CREATININE 1.07 MG/DL (0.55-1.02); GFR AFRICAN AMERICAN 69 ML/MIN (>=60); GFR NON AFRICAN AMERICAN 59 ML/MIN (>=60); GLUCOSE, SERUM 90 MG/DL (60-99); POTASSIUM, SERUM 3.1 MMOL/L (3.5-5.3); SODIUM, SERUM 148 MMOL/L (135-148)
[2017-01-13 04:15] LABS: BASOPHILS 0.5 %; BASOPHILS ABSOLUTE 0.03 10/3/uL (0.0-0.16); EOSINOPHILS 2.9 %; EOSINOPHILS ABSOLUTE 0.19 10/3/uL (0.0-0.53); HEMATOCRIT 35.2 % (36.0-48.0); HEMOGLOBIN 11.5 g/dL (12.0-16.0); IMMATURE GRANULOCYTES 0.5 %; IMMATURE GRANULOCYTES ABSOLUTE 0.03 10/3/uL (0.0-0.11); LYMPHOCYTES 29.8 %; LYMPHOCYTES ABSOLUTE 1.93 10/3/uL (0.67-4.30); MEAN CORPUS HGB CONC 32.7 g/dL (32.0-36.0); MEAN CORPUSCULAR HEMOGLOB 29.2 pg (26.0-34.0); MEAN PLATELET VOLUME 9.6 fL (9.2-13.0); MONOCYTES 6.2 %; NEUTROPHILS 60.1 %; PLATELET COUNT 249 10/3/uL (150-400); RBC DISTRIBUTION WIDTH 14.7 % (12.0-16.0); RED CELL COUNT 3.94 10/6/uL (4.0-5.6); WHITE BLOOD CELLS 6.5 10/3/uL (4.5-10.5)
[2017-01-13 04:25] LABS: MANUAL DIFF NO %; MEAN CORPUSCULAR VOLUME 89.3 fL (80-100)
[2017-01-13 04:28] LABS: CALCIUM, SERUM 8.8 MG/DL (8.5-10.4); CHLORIDE, SERUM 110 MMOL/L (96-112); CO2 (CARBON DIOXIDE) 22 MMOL/L (24-34); GFR AFRICAN AMERICAN 74 ML/MIN (>=60); GFR NON AFRICAN AMERICAN 64 ML/MIN (>=60); GLUCOSE, SERUM 99 MG/DL (60-99); POTASSIUM, SERUM 3.3 MMOL/L (3.5-5.3); SODIUM, SERUM 145 MMOL/L (135-148)
[2017-01-13 04:43] LABS: BUN (BLOOD UREA NITROGEN) 2 MG/DL (6-23)
[2017-01-14 05:35] LABS: BUN (BLOOD UREA NITROGEN) 2 MG/DL (6-23); CALCIUM, SERUM 8.7 MG/DL (8.5-10.4); CHLORIDE, SERUM 113 MMOL/L (96-112); CO2 (CARBON DIOXIDE) 23 MMOL/L (24-34); CREATININE 0.97 MG/DL (0.55-1.02); GFR AFRICAN AMERICAN 77 ML/MIN (>=60); GFR NON AFRICAN AMERICAN 67 ML/MIN (>=60); GLUCOSE, SERUM 112 MG/DL (60-99); SODIUM, SERUM 145 MMOL/L (135-148)
[2017-01-14 05:40] LABS: POTASSIUM, SERUM 3.6 MMOL/L (3.5-5.3)
[2017-01-15 07:57] LABS: BUN (BLOOD UREA NITROGEN) 4 MG/DL (6-23); CALCIUM, SERUM 8.9 MG/DL (8.5-10.4); CHLORIDE, SERUM 111 MMOL/L (96-112); CO2 (CARBON DIOXIDE) 22 MMOL/L (24-34); GFR AFRICAN AMERICAN 98 ML/MIN (>=60); GFR NON AFRICAN AMERICAN 84 ML/MIN (>=60); GLUCOSE, SERUM 99 MG/DL (60-99); SODIUM, SERUM 144 MMOL/L (135-148)
[2017-01-15 07:58] LABS: POTASSIUM, SERUM 3.7 MMOL/L (3.5-5.3)
[2017-01-16 06:22] LABS: BASOPHILS 0.5 %; BASOPHILS ABSOLUTE 0.03 10/3/uL (0.0-0.16); EOSINOPHILS ABSOLUTE 0.37 10/3/uL (0.0-0.53); HEMATOCRIT 34.1 % (36.0-48.0); HEMOGLOBIN 11.1 g/dL (12.0-16.0); IMMATURE GRANULOCYTES 0.3 %; IMMATURE GRANULOCYTES ABSOLUTE 0.02 10/3/uL (0.0-0.11); LYMPHOCYTES 31.1 %; LYMPHOCYTES ABSOLUTE 1.93 10/3/uL (0.67-4.30); MEAN CORPUS HGB CONC 32.6 g/dL (32.0-36.0); MEAN CORPUSCULAR HEMOGLOB 30.2 pg (26.0-34.0); MEAN PLATELET VOLUME 10.4 fL (9.2-13.0); MONOCYTES 4.8 %; NEUTROPHILS 57.3 %; NEUTROPHILS ABSOLUTE 3.56 10/3/uL (2.02-8.40); PLATELET COUNT 199 10/3/uL (150-400); RBC DISTRIBUTION WIDTH 15.1 % (12.0-16.0); RED CELL COUNT 3.67 10/6/uL (4.0-5.6); WHITE BLOOD CELLS 6.2 10/3/uL (4.5-10.5)
[2017-01-16 06:24] LABS: MANUAL DIFF NO %; MEAN CORPUSCULAR VOLUME 92.9 fL (80-100)
[2017-01-16 06:41] LABS: BUN (BLOOD UREA NITROGEN) 3 MG/DL (6-23); CALCIUM, SERUM 8.8 MG/DL (8.5-10.4); CHLORIDE, SERUM 109 MMOL/L (96-112); CO2 (CARBON DIOXIDE) 22 MMOL/L (24-34); GFR AFRICAN AMERICAN 98 ML/MIN (>=60); GFR NON AFRICAN AMERICAN 84 ML/MIN (>=60); GLUCOSE, SERUM 89 MG/DL (60-99); POTASSIUM, SERUM 3.4 MMOL/L (3.5-5.3); SODIUM, SERUM 144 MMOL/L (135-148)
[2017-01-16 06:56] LABS: PLATELET ESTIMATE ADQ (ADEQUATE); RBC MORPHOLOGY NORM (NORMAL)
[2017-01-16 20:05] LABS: THIAMINE 169.7 nmol/L (()); THIAMINE MONOPHOSPHATE 27.7 nmol/L (())
[2017-01-17 07:16] LABS: BASOPHILS 0.4 %; BASOPHILS ABSOLUTE 0.02 10/3/uL (0.0-0.16); EOSINOPHILS ABSOLUTE 0.34 10/3/uL (0.0-0.53); HEMATOCRIT 35.1 % (36.0-48.0); HEMOGLOBIN 11.7 g/dL (12.0-16.0); IMMATURE GRANULOCYTES 0.5 %; IMMATURE GRANULOCYTES ABSOLUTE 0.03 10/3/uL (0.0-0.11); LYMPHOCYTES 27.7 %; LYMPHOCYTES ABSOLUTE 1.58 10/3/uL (0.67-4.30); MEAN CORPUS HGB CONC 33.3 g/dL (32.0-36.0); MEAN CORPUSCULAR HEMOGLOB 30.7 pg (26.0-34.0); MEAN CORPUSCULAR VOLUME 92.1 fL (80-100); MEAN PLATELET VOLUME 10.1 fL (9.2-13.0); MONOCYTES 5.8 %; MONOCYTES ABSOLUTE 0.33 10/3/uL (0.21-1.20); NEUTROPHILS 59.6 %; PLATELET COUNT 198 10/3/uL (150-400); RBC DISTRIBUTION WIDTH 15.1 % (12.0-16.0); RED CELL COUNT 3.81 10/6/uL (4.0-5.6); WHITE BLOOD CELLS 5.7 10/3/uL (4.5-10.5)
[2017-01-17 07:17] LABS: MANUAL DIFF NO %
[2017-01-17 07:46] LABS: BUN (BLOOD UREA NITROGEN) 3 MG/DL (6-23); CHLORIDE, SERUM 109 MMOL/L (96-112); CO2 (CARBON DIOXIDE) 24 MMOL/L (24-34); CREATININE 0.81 MG/DL (0.55-1.02); GFR AFRICAN AMERICAN 96 ML/MIN (>=60); GFR NON AFRICAN AMERICAN 83 ML/MIN (>=60); GLUCOSE, SERUM 101 MG/DL (60-99); POTASSIUM, SERUM 3.4 MMOL/L (3.5-5.3); SODIUM, SERUM 144 MMOL/L (135-148)
[2017-01-18 05:40] LABS: BUN (BLOOD UREA NITROGEN) 5 MG/DL (6-23); CHLORIDE, SERUM 108 MMOL/L (96-112); CO2 (CARBON DIOXIDE) 25 MMOL/L (24-34); CREATININE 1.04 MG/DL (0.55-1.02); GFR AFRICAN AMERICAN 71 ML/MIN (>=60); GFR NON AFRICAN AMERICAN 61 ML/MIN (>=60); GLUCOSE, SERUM 97 MG/DL (60-99); POTASSIUM, SERUM 3.9 MMOL/L (3.5-5.3); SODIUM, SERUM 143 MMOL/L (135-148)
[2017-05-02] MEDS ORDERED: PROAIR HFA INH (11:34)
[2017-05-02] MEDS ORDERED: DIL4TAB PO (11:37)
[2017-05-02] MEDS ORDERED: DIL2AMP IM (11:39)
== END 2017-01-18 15:58 | disposition home or self-care (01) | DRG 149 ==
LOC: ER 04:53 → CDU1 10:34 → CDU2 10:59 → 6NO 01-14 14:31
PROVIDERS: Hospitalist; Internal Medicine; Nurse Practitioner Family
DX: H81.03 Meniere's disease, bilateral (principal); N17.9 Acute kidney failure, unspecified; E87.2 Acidosis; E87.6 Hypokalemia; G25.81 Restless legs syndrome; G43.909 Migraine, unspecified, not intractable, without status migrainosus; G47.33 Obstructive sleep apnea (adult) (pediatric); N20.0 Calculus of kidney; F41.9 Anxiety disorder, unspecified; F32.9 Major depressive disorder, single episode, unspecified; G58.8 Other specified mononeuropathies; E66.9 Obesity, unspecified; Z68.39 Body mass index [BMI] 39.0-39.9, adult; Z88.0 Allergy status to penicillin; Z88.1 Allergy status to other antibiotic agents; Z88.5 Allergy status to narcotic agent; Z88.8 Allergy status to other drugs, medicaments and biological substances; Z90.710 Acquired absence of both cervix and uterus; Z98.84 Bariatric surgery status; Z98.890 Other specified postprocedural states
CPT/HCPCS: 74176; 80048; 80053; 81001; 82150; 82607; 83690; 83735; 84132; 84425; 85025; 93005; 96374; 96375; 99285; A9270-GY; C9113; J1170; J1200; J2405; J2550; J2765; J2930; J3360; J3411

== ENCOUNTER 2017-01-23 16:19 | Emergency (ER) | payer BC ==
[2017-01-23 16:08] LABS: INTERNATIONAL NORMAL RATI 1.1 UNITS (-); PARTIAL THROMBO TIME 23.8 SEC (22.5-37.2)
[2017-01-23 16:09] LABS: PROTIME (NOT ORD) 14.5 SEC (12.0-14.5)
[2017-01-23 16:12] LABS: BASOPHILS 0.2 %; BASOPHILS ABSOLUTE 0.03 10/3/uL (0.0-0.16); EOSINOPHILS 0 %; HEMOGLOBIN 13.5 g/dL (12.0-16.0); IMMATURE GRANULOCYTES 0.3 %; IMMATURE GRANULOCYTES ABSOLUTE 0.05 10/3/uL (0.0-0.11); LYMPHOCYTES ABSOLUTE 1.65 10/3/uL (0.67-4.30); MEAN CORPUS HGB CONC 32.8 g/dL (32.0-36.0); MEAN CORPUSCULAR HEMOGLOB 29.9 pg (26.0-34.0); MEAN CORPUSCULAR VOLUME 91.4 fL (80-100); MONOCYTES 2.8 %; MONOCYTES ABSOLUTE 0.42 10/3/uL (0.21-1.20); NEUTROPHILS 85.7 %; NEUTROPHILS ABSOLUTE 12.86 10/3/uL (2.02-8.40); PLATELET COUNT 252 10/3/uL (150-400); RBC DISTRIBUTION WIDTH 15.3 % (12.0-16.0); RED CELL COUNT 4.51 10/6/uL (4.0-5.6)
[2017-01-23 16:13] LABS: ER CBC TAT 0 Hrs 16 Mins; HEMATOCRIT 41.2 % (36.0-48.0); MANUAL DIFF NO %
[2017-01-23 16:16] LABS: BUN (BLOOD UREA NITROGEN) 8 MG/DL (6-23); CALCIUM, SERUM 8.8 MG/DL (8.5-10.4); CHEST PAIN PROFILE TAT 0 Hrs 19 Mins; CHLORIDE, SERUM 111 MMOL/L (96-112); CO2 (CARBON DIOXIDE) 22 MMOL/L (24-34); CREATININE 0.76 MG/DL (0.55-1.02); GFR AFRICAN AMERICAN 104 ML/MIN (>=60); GFR NON AFRICAN AMERICAN 90 ML/MIN (>=60); POTASSIUM, SERUM 3.4 MMOL/L (3.5-5.3); SODIUM, SERUM 144 MMOL/L (135-148); TROPONIN I <0.02 NG/ML (<0.05)
[2017-01-23 16:18] LABS: GLUCOSE, SERUM 125 MG/DL (60-99)
[~2017-01-23 16:19] MED LIST changes: +MULTIVIT/MIN PO; +ONDANSETRON IM; +TOPAMAX100 PO; +[UNRECOGNIZED DRUG - OTHER] IM
[2017-05-02] MEDS ORDERED: PROAIR HFA INH (11:34)
[2017-05-02] MEDS ORDERED: DIL4TAB PO (11:37)
[2017-05-02] MEDS ORDERED: DIL2AMP IM (11:39)
== END 2017-01-23 19:46 | disposition home or self-care (01) ==
LOC: ER 16:19
PROVIDERS: Emergency Medicine
DX: R11.2 Nausea with vomiting, unspecified (principal); I10 Essential (primary) hypertension; Z90.710 Acquired absence of both cervix and uterus; Z88.5 Allergy status to narcotic agent; Z88.0 Allergy status to penicillin; Z88.1 Allergy status to other antibiotic agents; Z88.8 Allergy status to other drugs, medicaments and biological substances; Z79.899 Other long term (current) drug therapy
CPT/HCPCS: 71020; 80048; 83735; 84484; 85025; 85610; 85730; 93005; 96374; 96375; 99284; J2405; J2550

== ENCOUNTER 2017-01-24 14:48 | Inpatient (IN) | payer BC ==
--- NOTE | ~2017-01-24 | CN ---
Consultation Report [facility] [address] [place]. [address] NAME: MICH MARIN : 61 STATUS : ADM IN [facility]#: [id number] AGE: 51 ADM/REG DATE : 01/24/17 MR#: [id number] REPORT SERV DATE: 01/27/17 DICTATED BY: FRIEDA SHEETS DATE: 01/26/17 REPORT STATUS : Draft TRANSCRIBED BY: MODL DATE: 01/26/17 CONSULTATION NOTE DATE OF CONSULTATION: 01/26/2017 HISTORY OF PRESENT ILLNESS: This is a 51-year-old white female, I am seeing for Dr. Allen Howell, admitted with recurrent nausea and vomiting. She had a recent gastric sleeve done by Dr. Manzano in December and had difficulty with nausea and vomiting a week ago, and was admitted, discharged after treatment, and then now readmitted with nausea and vomiting. She had previous lap band, Dr. Howell had done EGD and colonoscopy back in November, which revealed an evidence of lap band. She has had a little bit of loose stool, occasional cramp, history of Meniere's disease, followed by Pain Management as well for neuralgia, followed by Dr. Harley as well and is followed by a neurologist in [place]. She has had a CT of the abdomen this admission which was negative except for renal stones. History of hypertension, history of obstructive sleep apnea. She has had hiatal hernia repair previously and an inguinal hernia repair in the past. She has had a hysterectomy, abdominoplasty, and cervical fusion. SOCIAL HISTORY: Negative for EtOH or nicotine. FAMILY HISTORY: Negative for colon cancer. LABORATORY AND DIAGNOSTIC DATA: Her LFTs were unremarkable. Amylase normal. Lipase slightly increased at 500. White count of 10,400 currently, hemoglobin of 13.7, since admission, it has improved. hospitalist and ENT. She was also seen by Neurology, who did not feel that it was neurologic in origin. PHYSICAL EXAMINATION: GENERAL: Well-developed, well-nourished white female, alert and oriented x3. HEENT: Anicteric. NECK: Negative. CHEST: Clear to percussion. HEART: Regular rate and rhythm. No murmur or gallop. ABDOMEN: Soft. Minimal tenderness in the epigastrium. Bowel sounds are present. EXTREMITIES/NEUROLOGIC: Grossly intact. ASSESSMENT: 1. Status post gastric sleeve one month ago with previous history of lap band, admitted one week ago with nausea and vomiting. Now readmitted with nausea and vomiting which are improved at present. CT negative. 2. History of Meniere's disease. 3. Diarrhea. 4. Obstructive sleep apnea. 5. Hypertension. Consultation Report [address] [place]. [address] NAME: MICH MARIN : 61 STATUS : ADM IN PAT#: [id number] AGE: 51 ADM/REG DATE : 01/24/17 MR#: [id number] REPORT SERV DATE: 01/27/17 DICTATED BY: FRIEDA SHEETS DATE: 01/26/17 REPORT STATUS : Draft TRANSCRIBED BY: JEWEL DATE: 01/26/17 SUGGESTION: Currently, is improved and has been begun on soft diet, need to monitor her response to that. Continue current medications by others, which has included Reglan and Marinol. She has also been on Valium, meclizine, and also takes her Sinemet, Triamterene, also sertraline, meclizine and Zofran. We will currently follow for now. Thank you very much for the consultation. ANNE-MARIE/JEWEL Frieda Sheets M.D. / [id number] CC: Doug Fitzgerald M.D. Alan Shikoh, M.D.
--- NOTE | ~2017-01-24 | CN ---
Consultation Report [facility] [address] [place]. [address] NAME: MICH MARIN : 61 STATUS : ADM IN PAT#: [id number] AGE: 51 ADM/REG DATE : 01/24/17 MR#: [id number] REPORT SERV DATE: 01/24/17 DICTATED BY: DATE: REPORT STATUS : Draft TRANSCRIBED BY: MODL DATE: 01/24/17 NEUROLOGY CONSULTATION DATE OF CONSULTATION: 01/24/2017 REASON FOR CONSULT: Intractable nausea and vomiting. HISTORY OF PRESENT ILLNESS: This is a 51-year-old female, presented to [facility] secondary to recurrent intractable nausea and vomiting after recent GI surgery. The patient has had a history of Meniere's disease. The patient reports a difficultly to tolerate p.o. diet as well as nausea and vomiting with stable vertigo sensation as well as tinnitus sensation. No ear fullness was otherwise reported. Denies any new focal weakness or numbness. The patient was previously recently admitted to the hospital in the month of January as well as the end of the December with similar complaints. Otherwise, no recent fever, chills, nausea, vomiting, chest pain, or shortness of breath and no other changes in medications. PAST MEDICAL HISTORY: Significant for recent gastric sleeve surgery as well as Meniere's disease and vestibular suppression, geniculate neuralgia, anxiety, depression, irritable bowel syndrome, obstructive sleep apnea, restless legs syndrome, and hypertension. The patient does have chronic left ear pain. The patient sees neurologist out in [place]. SOCIAL HISTORY: Denies tobacco, alcohol, or recreational drug usage. FAMILY HISTORY: Significant for diabetes, obesity. No other significant family history is reported. ALLERGIES: THE PATIENT WAS NOTED TO HAVE ALLERGIES TO PENICILLIN, CIPROFLOXACIN, LORCET, PERCOCET, NONSTEROIDAL ANTI-INFLAMMATORY MEDICATION, PROPOXYPHENE. HOME MEDICATIONS: Consist of , Sinemet, , Benadryl, Marinol, Dilaudid, Antivert, multivitamin, Bystolic Zofran, Norflex, Phenergan, Requip, Zoloft, Topamax, Maxzide, and Zofran. REVIEW OF SYSTEMS: Negative except for those mentioned in the HPI. PHYSICAL EXAMINATION: VITAL SIGNS: At the time of evaluation, the patient was noted to have vital signs with T-max of 98.3, heart rate of 63, respirations of 18 to 20, and blood pressure of 154/96. GENERAL: The patient is a well developed, well nourished, in no acute distress. CARDIOVASCULAR: Regular rate and rhythm. No carotid bruits were otherwise auscultated. PULMONARY: Clear to auscultation bilaterally. Consultation Report [facility] [id number] [place]. [address] NAME: MICH MARIN : 61 STATUS : ADM IN PAT#: [id number] AGE: 51 ADM/REG DATE : 01/24/17 MR#: [id number] REPORT SERV DATE: 01/24/17 DICTATED BY: DATE: REPORT STATUS : Draft TRANSCRIBED BY: MODMariam DATE: 01/24/17 NEUROLOGICAL EXAMINATION: Generally, the patient is alert and oriented to person, place, year, and month and follows simple and 2-step commands. No dysarthria. No aphasia was otherwise noted. The patient was noted to have a dry heaving at the time of evaluation. Intact registration and recall. Cranial nerves II through XII pupils equal, round, and reactive to light. Minimal nystagmus to leftward gaze at the time of evaluation. No dysconjugate gaze at the time of evaluation. Reports symmetrical facial sensation and symmetrical facial expression was noted. Midline tongue. Normal palatal movement. Mild decreased hearing in bilateral ear. Otherwise, 5/5 bilateral upper and lower extremity strength. Normal [id number]-kg-olah examination without ataxia. Symmetrical sensation bilaterally. Deep tendon reflex was 1+ throughout. Gait was deferred secondary to the patient's still nausea and vomiting symptoms. LABORATORY STUDIES: Demonstrates sodium 145, potassium 3.2, chloride 111, bicarb 20, BUN of 9, creatinine 0.98, glucose of 129, calcium of 9.4, magnesium of 2.3. White blood cell count of 10.4, hemoglobin of 13.7, hematocrit of 40.4, and platelet count of 244. No neuro imaging was otherwise obtained. IMPRESSION: Nausea and vomiting, recent frequent episodes after gastric sleeve surgery. Uncertain if nausea and vomiting are secondary to Meniere's disease or secondary to gastrointestinal issues. We are recommending restart the patient on thiamine. Meanwhile, we will obtain MRI of the brain without contrast. Please consider Gastroenterology consult secondary to the patient's recurrent hospitalization for nausea and vomiting and intractable nature of the patient's symptom. RECOMMENDATION: 1. Thiamine 100 mg p.o. daily. 2. MRI of the brain without contrast. 3. Please consider GI consult secondary to intractable nature of the patient's symptoms. CCH/MODL Juan Antonio Smith MD / [id number] CC: Doug Fallon M.D.
--- NOTE | ~2017-01-24 | DS ---
Discharge Summary [facility] [id number] [place]. [address] NAME: MICH MARIN : 61 STATUS : DIS IN PAT#: [id number] AGE: 51 ADM/REG DATE : 01/24/17 MR#: [id number] REPORT SERV DATE: 02/01/17 DICTATED BY: JR. FARLEY WILLIAM JOHN DATE: 01/31/17 REPORT STATUS : Draft TRANSCRIBED BY: JEWEL DATE: 01/31/17 ADMISSION DATE: 01/24/2017 DISCHARGE DATE: 01/31/2017 DISCHARGE DIAGNOSES: Include: 1. Chronic intractable nausea and vomiting. 2. Chronic abdominal pain. 3. Liquid-consistency stools. 4. Meniere's disease. 5. Hypophosphatemia. 6. Recent gastric sleeve surgery. OPERATIONS, PROCEDURES, AND TREATMENTS: Include: 1. CT of the abdomen and pelvis done 01/24/2017 which showed no acute intraabdominal process. There were small bilateral renal stones without evidence of obstruction. 2. Acute abdominal series done 01/28/2016 which showed no acute abnormality. 3. Gallbladder ultrasound done 01/28/2016 which showed no cholelithiasis, acute or chronic. No bile duct dilation. Common bile duct was 4.2 mm. There was a nonspecific mild hepatomegaly and hepatic steatosis and a nonspecific mild apparent renal cortical thinning. CONSULTING PHYSICIANS: Include Dr. Smith of Neurology and Dr. Ganesh Benavidez of Gastroenterology. DISCHARGE MEDICATIONS: Include: 1. Sinemet 25/100 one tablet orally p.r.n. sleep. 2. Valium 5 mg orally three times a day as needed. 3. Marinol 10 mg orally twice a day. 4. Meclizine 25 b.i.d. as needed. 5. Phenergan 25 q.6 h. p.r.n. 6. Reglan 5 mg before meals. 7. Multivitamin tablet orally daily. 8. Bystolic 10 mg orally daily. 9. Potassium SR 20 mEq daily. 10.Requip 1 mg every morning, 2 mg at bedtime. 11.Zoloft 100 mg orally every morning. 12.Simethicone 120 t.i.d. 13.Sucralfate 1 g orally before meals at bedtime. 14.Thiamine 100 mg orally daily. 15.Topamax 100 mg orally at night. 16.Maxzide 37.5/25 one tablet every morning. 17.ProAir 2 puffs t.i.d. p.r.n. 18.Benadryl injectable as prior. 19.Zofran injectable as prior. 20.Phenergan 25 mg suppository as needed. 21.Norflex 30 mg IM every 12 hours as needed. Discharge Summary [address] [place]. [address] NAME: MICH MARIN : 61 STATUS : DIS IN PAT#: [id number] AGE: 51 ADM/REG DATE : 01/24/17 MR#: [id number] REPORT SERV DATE: 02/01/17 DICTATED BY: JR. FARLEY WILLIAM JOHN DATE: 01/31/17 REPORT STATUS : Draft TRANSCRIBED BY: JEWEL DATE: 01/31/17 HOSPITAL COURSE: The patient is a 51-year-old white female admitted directly from Dr. Manzano's office. The patient has nausea, vomiting, and chronic abdominal pain surgery. She recently had a gastric sleeve surgery, and Dr. Manzano felt this nausea and vomiting is not from her recent surgery rather due to Meniere's disease. Request is for ENT, Dr. Harley, and Neurology to consult on the patient for further recommendations. For the complete details of the admission history, physical, and presenting data, please see Dr. Lopez's dictated history and physical. The patient is admitted to the Clinical Decision Unit. She was seen in consultation by Neurology, who did recommend thiamin and an MRI of the brain was initially recommended, however, could not be tolerated. GI consultation was further recommended. The patient was subsequently seen by Dr. Ganesh Benavidez of GI who recommended Reglan and Marinol and also on Valium, meclizine, Sinemet, triamterene, sertraline, meclizine, and Zofran. He had no further recommendations and felt endoscopic evaluation was not warranted. The patient was also seen by Dr. Harley of ENT, who recommended the same as above, did recommend thiamine and meclizine to be p.r.n. not scheduled. No further recommendations were offered. The patient continued to have nausea and vomiting. She was tolerating a liquid diet. On 01/31/2017, the patient felt remarkably better and felt that she could go home. Her mother had called and scheduled an outpatient appointment for followup with Dr. Manzano. May consider referral to [facility]. For discharge exam and laboratory, please see daily progress note. DISCHARGE DIET: Soft diet. ACTIVITY: Ad clary. FOLLOWUP: Follow with Dr. Manzano. This discharge took 35 minutes for patient encounter, coordination of care, and documentation. WJF/JUDIL Theron Farley Jr, MD / [id number] CC: Theron Farley Jr, MD Richard Forrest Sowell, M.D.
--- NOTE | ~2017-01-24 | HP ---
History And Physical [place] [id number] [facility] [place]. [address] NAME: MICH MARIN : 61 STATUS : ADM IN PAT#: [id number] AGE: 51 ADM/REG DATE : 01/24/17 MR#: [id number] REPORT SERV DATE: 01/24/17 DICTATED BY: NABEEL TANG DATE: 01/24/17 REPORT STATUS : Draft TRANSCRIBED BY: MODL DATE: 01/24/17 DATE OF ADMISSION: 01/24/2017 HISTORY OF PRESENT ILLNESS: The patient is a 51-year-old female, who presented to [facility] CDU unit as a direct transfer from Dr. Manzano's office. I personally spoke with Dr. Manzano and he reported that the patient was having nausea, vomiting, and abdominal pain, and he thinks it is not related to her recent gastric sleeve surgery and he thinks it is related to Meniere disease and that is why the patient was admitted as a direct transfer from Dr. Manzano's office to the hospital. Also, Dr. Manzano is recommended the patient to be seen by Dr. Harley and maybe neurologist or psychiatrist when he spoke with me. On presentation to the CDU, the patient is complaining of nausea, vomiting started for several days. She reported that since she was discharged on 01/18/2017 she was okay for five to six days and then she started to have her symptoms again and her mother at the bedside telling her medical problems because the patient is nauseous and constantly trying to vomit. She is dry heaving as well. She is complaining of midabdominal pain. She said that she is having loose stools, but not really diarrhea. She yesterday presented to emergency room with nausea and vomiting and according to her lab work was okay, she was sent home. REVIEW OF SYSTEMS: All 14-point review of systems done and negative except what was stated in the history of present illness. PAST MEDICAL HISTORY: Known for Meniere disease, recent gastric sleeve surgery converted from a lap band, morbid obesity, vestibular problems as well as geniculate neuralgia, anxiety, depression, hypertension, irritable bowel syndrome, obstructive sleep apnea, and migraines. Currently, she does not have a headache. She just complaining of nausea and vomiting. Her mother reported that the patient had neural blocks done per Dr. Mcguire, but that did not help, so they are planning to do other neural block. She is seeing Neurology, Dr. Gerson Dorantes at [place]. The primary care physician, Dr. Arjun Salter as well as she sees Dr. Harley. PAST SURGICAL HISTORY: Very extensive it includes gastric bands then converted to gastric sleeve surgery, she had a hernia repair, partial hysterectomy, cystopexy, abdominoplasty, and cervical fusion. ALLERGIES: SHE IS ALLERGIC TO PENICILLIN AND CIPROFLOXACIN. SHE HAD ADVERSE REACTION TO HYDROCODONE, OXYCODONE, NONSTEROID ANTI-INFLAMMATORIES, AND PROPOXYPHENE. HOME MEDICATIONS: Albuterol metered dose inhaler two puffs inhaled three times daily as needed, Sinemet 25/100 one tablet at bedtime for restless legs, Valium 5 mg daily p.r.n., Benadryl 50 mg intramuscularly every 8 hours as needed for migraines, Marinol 5 mg every 8 hours p.r.n., Dilaudid 2 mg p.o. every 6 hours p.r.n., meclizine 25 mg p.o. twice daily p.r.n., multivitamins one tablet daily, Bystolic 10 mg daily, Zofran 8 mg p.o. q.6 hours History And Physical [address] [address] NAME: MICH MARIN : 61 STATUS : ADM IN [facility]#: [id number] AGE: 51 ADM/REG DATE : 01/24/17 MR#: [id number] REPORT SERV DATE: 01/24/17 DICTATED BY: NABEEL TANG DATE: 01/24/17 REPORT STATUS : Draft TRANSCRIBED BY: JEWEL DATE: 01/24/17 p.r.n., Norflex 30 mg intramuscularly every 12 hours p.r.n., Phenergan 25 intramuscularly q.6h p.r.n., Phenergan 25 mg q.6h orally, Requip 1 mg every morning 2 mg at bedtime, Zoloft 100 mg a day, Topamax 100 mg daily, Maxzide 37.5/25 one tablet every morning, and Zofran 8 mg intramuscularly q.8h p.r.n. SOCIAL HISTORY: No alcohol. No smoking. No recreational drug use. She sees Pain Management. FAMILY HISTORY: Her brother has diabetes and obesity. PHYSICAL EXAMINATION: GENERAL: Obese female, not in acute distress, but constantly trying to vomit. VITAL SIGNS: Temperature 98.1, heart rate 63, respiratory rate 20, oxygen saturation 97% on room air, blood pressure 154/96. HEENT: Head atraumatic, normocephalic. Conjunctivae clear. Pupils are equal, reactive to light and accommodation. Extraocular muscles are intact. NECK: Supple. Trachea is midline. No supraclavicular or cervical lymphadenopathy. LUNGS: Clear to auscultation bilaterally. Decreased respiratory effort. CARDIOVASCULAR SYSTEM: Regular rate and rhythm. Point of maximal impulse not displaced. ABDOMEN: Obese, soft. There are slightly diminished bowel sounds. There is tenderness in the mid abdominal area. There is no guarding, no rebound. Benign abdominal examination. EXTREMITIES: No clubbing, cyanosis. No edema. SKIN: Normal color and turgor. PSYCHIATRIC: Anxious mood and affect. LABORATORY RESULTS: Sodium 144, potassium 3.4, chloride 111, carbon dioxide 22, BUN 8, creatinine 0.76, blood sugar 125. Troponin less than 0.02. Calcium 8.8, magnesium 2.3. This was done yesterday. Also, she yesterday had a white count done in the emergency room which was 15,000, hemoglobin 13.5, hematocrit 41.2, and a platelet count 252. Current lab results ordered by me, but they are pending. She also had a chest x-ray done yesterday, which did not show any abnormality. ASSESSMENT AND PLAN: 1. This is a 51-year-old female, who presented with nausea, vomiting, abdominal pain. 2. History of migraine headaches and history of Meniere disease. Currently, she does not have a headache according to her. 3. Had leukocytosis yesterday. 4. Morbid obesity. 5. Recent gastric sleeve surgery. 6. History of geniculate neuralgia. 7. Possible hypokalemia. We will keep the patient on observation status. We will start her on IV fluid hydration since she is unable to keep anything down and constantly vomiting. Because of elevated white count and abdominal pain, we will do a CT scan of the abdomen and pelvis without contrast. 8. We check her basic metabolic panel and white count today. 9. If she has hypokalemia today, will be replaced by protocol. 10.Nausea control. We will give Zofran and Phenergan as well as for the pain control we History And Physical [place] [address] [address] [place] [address] NAME: MICH MARIN : 61 STATUS : ADM IN PAT#: [id number] AGE: 51 ADM/REG DATE : 01/24/17 MR#: [id number] REPORT SERV DATE: 01/24/17 DICTATED BY: NABEEL TANG DATE: 01/24/17 REPORT STATUS : Draft TRANSCRIBED BY: MODL DATE: 01/24/17 will put her on reasonable dose of Dilaudid as needed and she cannot take anything by mouth now, she wants IV. 11.Also last time she had mildly elevated lipase. We check serum amylase and lipase and procalcitonin level. 12.For her Meniere disease, Dr. Manzano discussed the patient's symptoms with her neurologist and ENT Dr. Harley and Dr. Dorantes, and they recommended Dr. Harley to be consulted as well as they recommended Neurology or Psychiatry to see patient. My partner will see this patient starting tomorrow morning. Everything was discussed with the patient and her mother. MG/MODL Nabeel Tang M.D. / [id number] CC: Doug Fallon M.D. Douglas A. Liening, M.D.
--- NOTE | ~2017-01-24 | IDS ---
Interim Discharge Summary [facility] [address] [place]. [address] NAME: MICH MARIN : 61 STATUS : ADM IN PAT#: [id number] AGE: 51 ADM/REG DATE : 01/24/17 MR#: [id number] REPORT SERV DATE: 01/29/17 DICTATED BY: ABA ASHLEY DATE: 01/29/17 REPORT STATUS : Draft TRANSCRIBED BY: MODL DATE: 01/29/17 ADMISSION DATE: 01/24/2017 DISCHARGE DATE: PRINCIPAL DIAGNOSIS: Intractable nausea and vomiting. SECONDARY DIAGNOSES: 1. History of gastric stapling. 2. History of Meniere's disease. 3. Dehydration. HISTORY OF PRESENT ILLNESS: Please see dictation #[id number]. HOSPITAL COURSE: Admitted with intractable vomiting at the request of Dr. Manzano who was concerned that the vomiting was triggered by her Meniere's and wished for consultation with Neurology and ENT as well as with GI. She was seen by all 3 specialities, neither Neurology nor ENT felt that Meniere's was the main trigger for her nausea; in fact, the patient was having abdominal pain and diarrhea as well which cannot be caught by Meniere's. She was seen by Dr. Benavidez of GI, who was more concerned about this being a surgical issue than anything else, did not recommend any further testing here at [facility] but instead to be seen once again by Dr. Manzano. Dr. Manzano was consulted; however, he did not make rounds at [facility] and arrangements were attempted to be made for her to return home and a followup appointment with Dr. Manzano on 01/31/2017. The patient was still having nausea and vomiting while she was tolerating clears. She felt like she was unable to go home on 01/29/2017 as she would not be able to make her appointment with Dr. Manzano. Dr. Howell her regular strapping machine operator allegedly would be back in town on 01/30/2017, she was held n.p.o. for the possibility of an EGD. However, if that was not be done, it was paramount that the patient be released to make it to her appointment with Dr. Manzano on 01/31/2017. I remain very concerned that this is actually a complication of her gastric stapling surgery. In the meanwhile, I maximized on antiemetics including Marinol, Zofran, Phenergan, Reglan, Carafate, and Protonix. She is on Valium, Benadryl, and even triamterene/HCTZ for her Meniere's, and that there is certainly nothing else medically that we can do for her nausea and vomiting at this time. We look forward to Dr. Howell's input on this case on 01/30/2017. RSM/JEWEL Aba Ashley M.D. / [id number] CC: Theron Farley Jr, MD Interim Discharge Summary [address] [address] NAME: MICH MARIN : 61 STATUS : ADM IN PAT#: [id number] AGE: 51 ADM/REG DATE : 01/24/17 MR#: [id number] REPORT SERV DATE: 01/29/17 DICTATED BY: ABA ASHLEY DATE: 01/29/17 REPORT STATUS : Draft TRANSCRIBED BY: JEWEL DATE: 01/29/17 Arjun Salter M.D. Allen Howell M.D. Win Maxwell M.D.
[2017-01-24 16:24] LABS: BASOPHILS 0.2 %; BASOPHILS ABSOLUTE 0.02 10/3/uL (0.0-0.16); EOSINOPHILS 0.1 %; EOSINOPHILS ABSOLUTE 0.01 10/3/uL (0.0-0.53); HEMATOCRIT 40.4 % (36.0-48.0); HEMOGLOBIN 13.7 g/dL (12.0-16.0); IMMATURE GRANULOCYTES 0.4 %; IMMATURE GRANULOCYTES ABSOLUTE 0.04 10/3/uL (0.0-0.11); LYMPHOCYTES 10.6 %; MEAN CORPUS HGB CONC 33.9 g/dL (32.0-36.0); MEAN CORPUSCULAR HEMOGLOB 30.5 pg (26.0-34.0); MEAN PLATELET VOLUME 9.7 fL (9.2-13.0); MONOCYTES 2.3 %; MONOCYTES ABSOLUTE 0.24 10/3/uL (0.21-1.20); NEUTROPHILS 86.4 %; NEUTROPHILS ABSOLUTE 9.01 10/3/uL (2.02-8.40); PLATELET COUNT 244 10/3/uL (150-400); RBC DISTRIBUTION WIDTH 15.2 % (12.0-16.0); RED CELL COUNT 4.49 10/6/uL (4.0-5.6); WHITE BLOOD CELLS 10.4 10/3/uL (4.5-10.5)
[2017-01-24 16:26] LABS: MANUAL DIFF NO %
[2017-01-24 16:41] LABS: A/G RATIO 1.4 (0.7-1.9); ALBUMIN 4.3 G/DL (3.5-5.0); BUN (BLOOD UREA NITROGEN) 9 MG/DL (6-23); CALCIUM, SERUM 9.4 MG/DL (8.5-10.4); CHLORIDE, SERUM 111 MMOL/L (96-112); CO2 (CARBON DIOXIDE) 20 MMOL/L (24-34); CREATININE 0.98 MG/DL (0.55-1.02); GFR AFRICAN AMERICAN 76 ML/MIN (>=60); GFR NON AFRICAN AMERICAN 66 ML/MIN (>=60); GLOBULIN 3.1 G/DL (2.5-4.1); GLUCOSE, SERUM 139 MG/DL (60-99); POTASSIUM, SERUM 3.2 MMOL/L (3.5-5.3); SGOT(AST) 41 U/L (5-40); SGPT(ALT) 40 U/L (5-65); SODIUM, SERUM 145 MMOL/L (135-148); TOTAL BILIRUBIN 0.7 MG/DL (0-1.2); TOTAL PROTEIN 7.4 G/DL (6.0-8.5)
[2017-01-24 16:42] LABS: ALKALINE PHOSPHATASE 102 U/L (45-117)
[2017-01-24 17:13] LABS: PROCALCITONIN <0.05 ng/mL (<0.5)
[2017-01-27 06:22] LABS: BUN (BLOOD UREA NITROGEN) 3 MG/DL (6-23); CALCIUM, SERUM 8.1 MG/DL (8.5-10.4); CHLORIDE, SERUM 109 MMOL/L (96-112); CO2 (CARBON DIOXIDE) 23 MMOL/L (24-34); CREATININE 1.09 MG/DL (0.55-1.02); GFR AFRICAN AMERICAN 67 ML/MIN (>=60); GFR NON AFRICAN AMERICAN 58 ML/MIN (>=60); GLUCOSE, SERUM 102 MG/DL (60-99); POTASSIUM, SERUM 2.7 MMOL/L (3.5-5.3); SODIUM, SERUM 144 MMOL/L (135-148)
[2017-01-28 06:06] LABS: BUN (BLOOD UREA NITROGEN) 2 MG/DL (6-23); CALCIUM, SERUM 8.3 MG/DL (8.5-10.4); CHLORIDE, SERUM 113 MMOL/L (96-112); CO2 (CARBON DIOXIDE) 22 MMOL/L (24-34); CREATININE 0.89 MG/DL (0.55-1.02); GFR AFRICAN AMERICAN 86 ML/MIN (>=60); GFR NON AFRICAN AMERICAN 74 ML/MIN (>=60); GLUCOSE, SERUM 109 MG/DL (60-99); PHOSPHORUS, SERUM 2.6 MG/DL (2.5-4.5); POTASSIUM, SERUM 3.5 MMOL/L (3.5-5.3); SODIUM, SERUM 147 MMOL/L (135-148)
[2017-01-29 05:13] LABS: BASOPHILS 0.3 %; BASOPHILS ABSOLUTE 0.02 10/3/uL (0.0-0.16); EOSINOPHILS 3.8 %; EOSINOPHILS ABSOLUTE 0.29 10/3/uL (0.0-0.53); HEMOGLOBIN 11.4 g/dL (12.0-16.0); IMMATURE GRANULOCYTES 0.4 %; IMMATURE GRANULOCYTES ABSOLUTE 0.03 10/3/uL (0.0-0.11); LYMPHOCYTES 34.9 %; LYMPHOCYTES ABSOLUTE 2.67 10/3/uL (0.67-4.30); MEAN CORPUS HGB CONC 32.9 g/dL (32.0-36.0); MEAN CORPUSCULAR HEMOGLOB 30.6 pg (26.0-34.0); MEAN PLATELET VOLUME 9.8 fL (9.2-13.0); MONOCYTES 4.2 %; MONOCYTES ABSOLUTE 0.32 10/3/uL (0.21-1.20); NEUTROPHILS 56.4 %; NEUTROPHILS ABSOLUTE 4.31 10/3/uL (2.02-8.40); PLATELET COUNT 193 10/3/uL (150-400); RBC DISTRIBUTION WIDTH 15.9 % (12.0-16.0); RED CELL COUNT 3.73 10/6/uL (4.0-5.6); WHITE BLOOD CELLS 7.6 10/3/uL (4.5-10.5)
[2017-01-29 05:18] LABS: HEMATOCRIT 34.7 % (36.0-48.0); MANUAL DIFF NO %
[2017-01-29 05:28] LABS: BUN (BLOOD UREA NITROGEN) 1 MG/DL (6-23); CALCIUM, SERUM 8.4 MG/DL (8.5-10.4); CHLORIDE, SERUM 114 MMOL/L (96-112); CO2 (CARBON DIOXIDE) 22 MMOL/L (24-34); CREATININE 0.93 MG/DL (0.55-1.02); GFR AFRICAN AMERICAN 81 ML/MIN (>=60); GFR NON AFRICAN AMERICAN 70 ML/MIN (>=60); GLUCOSE, SERUM 106 MG/DL (60-99); POTASSIUM, SERUM 3.3 MMOL/L (3.5-5.3); SGOT(AST) 19 U/L (5-40); SGPT(ALT) 15 U/L (5-65); SODIUM, SERUM 146 MMOL/L (135-148)
[2017-01-29 05:29] LABS: A/G RATIO 1.1 (0.7-1.9); ALBUMIN 2.8 G/DL (3.5-5.0); ALKALINE PHOSPHATASE 85 U/L (45-117); GLOBULIN 2.5 G/DL (2.5-4.1); TOTAL PROTEIN 5.3 G/DL (6.0-8.5)
[2017-01-31 04:57] LABS: BUN (BLOOD UREA NITROGEN) 3 MG/DL (6-23); CALCIUM, SERUM 8.7 MG/DL (8.5-10.4); CHLORIDE, SERUM 110 MMOL/L (96-112); CO2 (CARBON DIOXIDE) 22 MMOL/L (24-34); CREATININE 0.86 MG/DL (0.55-1.02); GFR AFRICAN AMERICAN 89 ML/MIN (>=60); GFR NON AFRICAN AMERICAN 77 ML/MIN (>=60); GLUCOSE, SERUM 86 MG/DL (60-99); POTASSIUM, SERUM 3.5 MMOL/L (3.5-5.3); SODIUM, SERUM 143 MMOL/L (135-148)
[2017-01-31] MEDS ORDERED: MARI5 PO (13:54)
[2017-01-31] MEDS ORDERED: KDUR10 PO (13:56)
[2017-01-31] MEDS ORDERED: CARASPUDL PO (13:57)
[2017-01-31] MEDS ORDERED: V5 PO (13:59)
[2017-01-31] MEDS ORDERED: REG5 PO ×2 (14:00→14:18)
[2017-01-31] MEDS ORDERED: MYLICON 80 MG T80 MG PO (14:01)
[2017-01-31] MEDS ORDERED: B1100 PO (14:02)
[2017-01-31] MEDS ORDERED: MAGOX4 PO (14:17)
[2017-05-02] MEDS ORDERED: PROAIR HFA INH (11:34)
[2017-05-02] MEDS ORDERED: DIL4TAB PO (11:37)
[2017-05-02] MEDS ORDERED: DIL2AMP IM (11:39)
== END 2017-01-31 15:45 | disposition home or self-care (01) | DRG 392 ==
LOC: CDU1 14:48
PROVIDERS: Hospitalist; Internal Medicine; Internal Medicine Gastroenterology
DX: R11.2 Nausea with vomiting, unspecified (principal); E83.39 Other disorders of phosphorus metabolism; I10 Essential (primary) hypertension; Z98.84 Bariatric surgery status; G47.33 Obstructive sleep apnea (adult) (pediatric); Z90.710 Acquired absence of both cervix and uterus; H81.09 Meniere's disease, unspecified ear; Z88.5 Allergy status to narcotic agent; Z88.0 Allergy status to penicillin; Z88.1 Allergy status to other antibiotic agents; Z88.8 Allergy status to other drugs, medicaments and biological substances; Z79.899 Other long term (current) drug therapy
CPT/HCPCS: 71020; 74022; 74176; 76705; 80048; 80053; 82150; 82272; 83690; 83735; 84100; 84132; 84145; 84484; 85025; 85610; 85730; 87045; 87046; 87046-59; 87328; 87329; 87493; 87493-59; 87899; 87899-59; 89055; 93005; 96374; 96375; 99284; A9270-GY; J1170; J1200; J2405; J2550; J2765

== ENCOUNTER 2017-02-04 22:23 | Emergency (ER) | payer BC ==
[2017-02-04 21:28] LABS: BASOPHILS 0.3 %; BASOPHILS ABSOLUTE 0.02 10/3/uL (0.0-0.16); EOSINOPHILS 1.5 %; EOSINOPHILS ABSOLUTE 0.11 10/3/uL (0.0-0.53); ER CBC TAT 0 Hrs 07 Mins; HEMOGLOBIN 13.2 g/dL (12.0-16.0); IMMATURE GRANULOCYTES 0.3 %; IMMATURE GRANULOCYTES ABSOLUTE 0.02 10/3/uL (0.0-0.11); LYMPHOCYTES 23.1 %; LYMPHOCYTES ABSOLUTE 1.71 10/3/uL (0.67-4.30); MEAN CORPUS HGB CONC 33.5 g/dL (32.0-36.0); MEAN CORPUSCULAR HEMOGLOB 30.6 pg (26.0-34.0); MEAN CORPUSCULAR VOLUME 91.4 fL (80-100); MEAN PLATELET VOLUME 9.6 fL (9.2-13.0); MONOCYTES 4.6 %; MONOCYTES ABSOLUTE 0.34 10/3/uL (0.21-1.20); NEUTROPHILS 70.2 %; NEUTROPHILS ABSOLUTE 5.21 10/3/uL (2.02-8.40); PLATELET COUNT 243 10/3/uL (150-400); RBC DISTRIBUTION WIDTH 15.4 % (12.0-16.0); RED CELL COUNT 4.31 10/6/uL (4.0-5.6); WHITE BLOOD CELLS 7.4 10/3/uL (4.5-10.5)
[2017-02-04 21:31] LABS: HEMATOCRIT 39.4 % (36.0-48.0); MANUAL DIFF NO %
[2017-02-04 21:43] LABS: CHLORIDE, SERUM 110 MMOL/L (96-112); CO2 (CARBON DIOXIDE) 23 MMOL/L (24-34); CREATININE 0.86 MG/DL (0.55-1.02); DIRECT BILIRUBIN 0.1 MG/DL (0.0-0.4); GFR AFRICAN AMERICAN 89 ML/MIN (>=60); GFR NON AFRICAN AMERICAN 77 ML/MIN (>=60); POTASSIUM, SERUM 3.8 MMOL/L (3.5-5.3); SGOT(AST) 24 U/L (5-40); SGPT(ALT) 26 U/L (5-65); SODIUM, SERUM 144 MMOL/L (135-148)
[2017-02-04 21:44] LABS: A/G RATIO 1.1 (0.7-1.9); ALBUMIN 3.4 G/DL (3.5-5.0); ALKALINE PHOSPHATASE 100 U/L (45-117); BUN (BLOOD UREA NITROGEN) 8 MG/DL (6-23); GLOBULIN 3.2 G/DL (2.5-4.1); GLUCOSE, SERUM 105 MG/DL (60-99); INDIRECT BILIRUBIN(NOT ORDER) 0.3 MG/DL (0.1-0.9); TOTAL BILIRUBIN 0.4 MG/DL (0-1.2); TOTAL PROTEIN 6.6 G/DL (6.0-8.5)
[2017-02-04 22:12] LABS: ASCORBIC ACID (UR NOT ORDER) NEG (NEG); BILIRUBIN, URINE NEGATIVE (NEG); ER URINALYSIS TAT 0 Hrs 13 Mins; KETONE, URINE NEGATIVE (NEG); LEUKOCYTE ESTERASE(NOT OR NEG (NEG); NITRITE (URINE) NEG (NEG); WBC (NOT ORDERED) (RFLEX) 2 (0-5)
[~2017-02-04 22:23] MED LIST changes: +B1100 PO; +CARASPUDL PO; +KDUR10 PO; +MYLICON 80 MG T80 MG PO; +REG5 PO
[2017-05-02] MEDS ORDERED: PROAIR HFA INH (11:34)
[2017-05-02] MEDS ORDERED: DIL4TAB PO (11:37)
[2017-05-02] MEDS ORDERED: DIL2AMP IM (11:39)
== END 2017-02-04 23:18 | disposition home or self-care (01) ==
LOC: ER 22:23
PROVIDERS: Emergency Medicine
DX: G89.29 Other chronic pain (principal); R10.9 Unspecified abdominal pain; R11.2 Nausea with vomiting, unspecified; J44.9 Chronic obstructive pulmonary disease, unspecified; I12.9 Hypertensive chronic kidney disease with stage 1 through stage 4 chronic kidney disease, or unspecified chronic kidney disease; N18.9 Chronic kidney disease, unspecified; K58.9 Irritable bowel syndrome, unspecified; Z88.6 Allergy status to analgesic agent; Z88.0 Allergy status to penicillin; Z88.1 Allergy status to other antibiotic agents; Z79.899 Other long term (current) drug therapy
CPT/HCPCS: 74022; 80053; 81001; 82248; 83690; 85025; 96372; 96374; 99284; C9113; J2405; J2800

== ENCOUNTER 2017-02-08 04:13 | Emergency (ER) | payer BC ==
[2017-02-08 04:03] LABS: BASOPHILS 0.1 %; BASOPHILS ABSOLUTE 0.01 10/3/uL (0.0-0.16); EOSINOPHILS 0 %; ER CBC TAT 0 Hrs 08 Mins; HEMATOCRIT 39.1 % (36.0-48.0); IMMATURE GRANULOCYTES 0.2 %; IMMATURE GRANULOCYTES ABSOLUTE 0.02 10/3/uL (0.0-0.11); LYMPHOCYTES 7.9 %; LYMPHOCYTES ABSOLUTE 0.66 10/3/uL (0.67-4.30); MEAN CORPUS HGB CONC 33.2 g/dL (32.0-36.0); MEAN CORPUSCULAR HEMOGLOB 30.2 pg (26.0-34.0); MEAN CORPUSCULAR VOLUME 90.9 fL (80-100); MEAN PLATELET VOLUME 9.4 fL (9.2-13.0); MONOCYTES 0.8 %; MONOCYTES ABSOLUTE 0.07 10/3/uL (0.21-1.20); NEUTROPHILS ABSOLUTE 7.58 10/3/uL (2.02-8.40); PLATELET COUNT 251 10/3/uL (150-400); RBC DISTRIBUTION WIDTH 15.2 % (12.0-16.0); WHITE BLOOD CELLS 8.3 10/3/uL (4.5-10.5)
[2017-02-08 04:14] LABS: MANUAL DIFF NO %
[2017-02-08 04:17] LABS: A/G RATIO 1.2 (0.7-1.9); ALBUMIN 3.8 G/DL (3.5-5.0); ALKALINE PHOSPHATASE 104 U/L (45-117); BUN (BLOOD UREA NITROGEN) 6 MG/DL (6-23); CALCIUM, SERUM 8.8 MG/DL (8.5-10.4); CHLORIDE, SERUM 106 MMOL/L (96-112); CO2 (CARBON DIOXIDE) 21 MMOL/L (24-34); CREATININE 0.85 MG/DL (0.55-1.02); GFR AFRICAN AMERICAN 91 ML/MIN (>=60); GFR NON AFRICAN AMERICAN 78 ML/MIN (>=60); GLOBULIN 3.2 G/DL (2.5-4.1); POTASSIUM, SERUM 3.7 MMOL/L (3.5-5.3); SGOT(AST) 21 U/L (5-40); SGPT(ALT) 24 U/L (5-65); SODIUM, SERUM 141 MMOL/L (135-148); TOTAL BILIRUBIN 0.6 MG/DL (0-1.2)
[2017-02-08 04:21] LABS: GLUCOSE, SERUM 159 MG/DL (60-99)
[2017-05-02] MEDS ORDERED: PROAIR HFA INH (11:34)
[2017-05-02] MEDS ORDERED: DIL4TAB PO (11:37)
[2017-05-02] MEDS ORDERED: DIL2AMP IM (11:39)
== END 2017-02-08 04:44 | disposition home or self-care (01) ==
LOC: ER 04:13
PROVIDERS: Nurse Practitioner Acute Care
DX: R11.2 Nausea with vomiting, unspecified (principal); I10 Essential (primary) hypertension; F41.9 Anxiety disorder, unspecified; F32.9 Major depressive disorder, single episode, unspecified; Z88.5 Allergy status to narcotic agent; Z88.0 Allergy status to penicillin; Z88.1 Allergy status to other antibiotic agents; Z79.899 Other long term (current) drug therapy
CPT/HCPCS: 80053; 83690; 85025; 96372; 99284; J2405; J2765

== ENCOUNTER 2017-02-15 23:50 | Emergency (ER) | payer BC ==
[2017-02-16 01:20] LABS: ASCORBIC ACID (UR NOT ORDER) NEG (NEG); BILIRUBIN, URINE NEGATIVE (NEG); ER URINALYSIS TAT 0 Hrs 00 Mins; KETONE, URINE TRACE MG/DL (NEG); LEUKOCYTE ESTERASE(NOT OR MOD (NEG); NITRITE (URINE) NEG (NEG); WBC (NOT ORDERED) (RFLEX) 6 (0-5)
[2017-02-16 01:24] LABS: BUN (BLOOD UREA NITROGEN) 5 MG/DL (6-23); CALCIUM, SERUM 8.4 MG/DL (8.5-10.4); CHLORIDE, SERUM 109 MMOL/L (96-112); CO2 (CARBON DIOXIDE) 23 MMOL/L (24-34); CREATININE 0.75 MG/DL (0.55-1.02); GFR AFRICAN AMERICAN 105 ML/MIN (>=60); GFR NON AFRICAN AMERICAN 91 ML/MIN (>=60); GLUCOSE, SERUM 79 MG/DL (60-99); POTASSIUM, SERUM 3.8 MMOL/L (3.5-5.3); SODIUM, SERUM 143 MMOL/L (135-148); TOTAL PROTEIN 6.4 G/DL (6.0-8.5)
[2017-02-16 01:25] LABS: A/G RATIO 0.8 (0.7-1.9); ALBUMIN 2.9 G/DL (3.5-5.0); ALKALINE PHOSPHATASE 89 U/L (45-117); GLOBULIN 3.5 G/DL (2.5-4.1); SGOT(AST) 26 U/L (5-40); SGPT(ALT) 12 U/L (5-65); TOTAL BILIRUBIN 0.5 MG/DL (0-1.2)
[2017-02-16 02:02] LABS: DIRECT BILIRUBIN < 0.1 MG/DL (0.0-0.4); INDIRECT BILIRUBIN(NOT ORDER) 0.4 MG/DL (0.1-0.9)
[2017-02-16 02:03] LABS: BASOPHILS 0.8 %; BASOPHILS ABSOLUTE 0.05 10/3/uL (0.0-0.16); EOSINOPHILS 1.6 %; HEMATOCRIT 35.2 % (36.0-48.0); HEMOGLOBIN 11.8 g/dL (12.0-16.0); IMMATURE GRANULOCYTES 1.6 %; LYMPHOCYTES 29.1 %; MEAN CORPUS HGB CONC 33.5 g/dL (32.0-36.0); MEAN CORPUSCULAR HEMOGLOB 31.1 pg (26.0-34.0); MEAN CORPUSCULAR VOLUME 92.6 fL (80-100); MONOCYTES 8.2 %; MONOCYTES ABSOLUTE 0.51 10/3/uL (0.21-1.20); NEUTROPHILS 58.7 %; NEUTROPHILS ABSOLUTE 3.63 10/3/uL (2.02-8.40); NUCLEATED RED BLOOD CELLS 1.2 /100WBC (0-0); PLATELET COUNT 248 10/3/uL (150-400); RBC DISTRIBUTION WIDTH 15.7 % (12.0-16.0); WHITE BLOOD CELLS 6.2 10/3/uL (4.5-10.5)
[2017-02-16 02:05] LABS: MANUAL DIFF NO %
[2017-02-16 02:21] LABS: BAND NEUTROPHILS 2 %; ER DIFF TAT 0 Hrs 24 Mins; IMMATURE GRANS ABSOLUTE (CALC) 0.06 10/3/uL (0.0-0.11); LYMPHOCYTES 36 %; LYMPHOCYTES ABSOLUTE (CALC) 2.23 10/3/uL (0.67-4.30); MONOCYTES 6 %; MONOCYTES ABSOLUTE (CALC) 0.37 10/3/uL (0.21-1.20); MYELOCYTES 1 %; NEUTROPHILS ABSOLUTE (CALC) 3.53 10/3/uL (2.02-8.40); PLATELET ESTIMATE ADQ (ADEQUATE); SEGMENTED NEUTROPHIL (0) 55 %; TOTAL NUCLEATED CELLS 100
[2017-02-16 02:22] LABS: RBC MORPHOLOGY NORM (NORMAL)
[2017-05-02] MEDS ORDERED: PROAIR HFA INH (11:34)
[2017-05-02] MEDS ORDERED: DIL4TAB PO (11:37)
[2017-05-02] MEDS ORDERED: DIL2AMP IM (11:39)
== END 2017-02-16 02:56 | disposition home or self-care (01) ==
LOC: ER 23:50
PROVIDERS: Emergency Medicine
DX: N39.0 Urinary tract infection, site not specified (principal); R10.9 Unspecified abdominal pain; G89.29 Other chronic pain; R11.0 Nausea; J44.9 Chronic obstructive pulmonary disease, unspecified; I11.0 Hypertensive heart disease with heart failure; I50.9 Heart failure, unspecified; F32.9 Major depressive disorder, single episode, unspecified; F41.9 Anxiety disorder, unspecified; Z90.710 Acquired absence of both cervix and uterus; Z88.5 Allergy status to narcotic agent; Z88.0 Allergy status to penicillin; Z88.1 Allergy status to other antibiotic agents; Z88.8 Allergy status to other drugs, medicaments and biological substances; Z79.899 Other long term (current) drug therapy
CPT/HCPCS: 80053; 80076; 81001; 82248; 83605; 83690; 85025; 87077; 87086; 87186; 96372; 99284; J2360; J2550

== ENCOUNTER 2017-02-22 23:36 | Emergency (ER) | payer BC ==
[2017-02-22 20:48] LABS: BASOPHILS 0.8 %; BASOPHILS ABSOLUTE 0.05 10/3/uL (0.0-0.16); EOSINOPHILS 1.5 %; EOSINOPHILS ABSOLUTE 0.09 10/3/uL (0.0-0.53); ER CBC TAT 0 Hrs 07 Mins; HEMATOCRIT 38.7 % (36.0-48.0); HEMOGLOBIN 12.8 g/dL (12.0-16.0); IMMATURE GRANULOCYTES 0.2 %; IMMATURE GRANULOCYTES ABSOLUTE 0.01 10/3/uL (0.0-0.11); LYMPHOCYTES 31.8 %; LYMPHOCYTES ABSOLUTE 1.96 10/3/uL (0.67-4.30); MEAN CORPUS HGB CONC 33.1 g/dL (32.0-36.0); MEAN CORPUSCULAR HEMOGLOB 30.1 pg (26.0-34.0); MEAN CORPUSCULAR VOLUME 91.1 fL (80-100); MEAN PLATELET VOLUME 9.6 fL (9.2-13.0); MONOCYTES 5.4 %; MONOCYTES ABSOLUTE 0.33 10/3/uL (0.21-1.20); NEUTROPHILS 60.3 %; NEUTROPHILS ABSOLUTE 3.72 10/3/uL (2.02-8.40); RBC DISTRIBUTION WIDTH 15.7 % (12.0-16.0); RED CELL COUNT 4.25 10/6/uL (4.0-5.6); WHITE BLOOD CELLS 6.2 10/3/uL (4.5-10.5)
[2017-02-22 20:49] LABS: MANUAL DIFF NO %; PLATELET COUNT 368 10/3/uL (150-400)
[2017-02-22 20:54] LABS: ASCORBIC ACID (UR NOT ORDER) NEG (NEG); BILIRUBIN, URINE NEGATIVE (NEG); ER URINALYSIS TAT 0 Hrs 13 Mins; KETONE, URINE TRACE MG/DL (NEG); LEUKOCYTE ESTERASE(NOT OR NEG (NEG); NITRITE (URINE) NEG (NEG); WBC (NOT ORDERED) (RFLEX) 5 (0-5)
[2017-02-22 21:06] LABS: A/G RATIO 1.1 (0.7-1.9); ALBUMIN 3.6 G/DL (3.5-5.0); ALKALINE PHOSPHATASE 127 U/L (45-117); BUN (BLOOD UREA NITROGEN) 4 MG/DL (6-23); CALCIUM, SERUM 9.2 MG/DL (8.5-10.4); CHLORIDE, SERUM 105 MMOL/L (96-112); CO2 (CARBON DIOXIDE) 26 MMOL/L (24-34); CREATININE 0.74 MG/DL (0.55-1.02); GFR AFRICAN AMERICAN 107 ML/MIN (>=60); GFR NON AFRICAN AMERICAN 92 ML/MIN (>=60); GLOBULIN 3.4 G/DL (2.5-4.1); GLUCOSE, SERUM 108 MG/DL (60-99); POTASSIUM, SERUM 3.6 MMOL/L (3.5-5.3); SGOT(AST) 39 U/L (5-40); SGPT(ALT) 23 U/L (5-65); SODIUM, SERUM 142 MMOL/L (135-148); TOTAL BILIRUBIN 0.9 MG/DL (0-1.2)
[2017-05-02] MEDS ORDERED: PROAIR HFA INH (11:34)
[2017-05-02] MEDS ORDERED: DIL4TAB PO (11:37)
[2017-05-02] MEDS ORDERED: DIL2AMP IM (11:39)
== END 2017-02-23 01:57 | disposition home or self-care (01) ==
LOC: ER 23:36
PROVIDERS: Hospitalist
DX: K85.90 Acute pancreatitis without necrosis or infection, unspecified (principal); I10 Essential (primary) hypertension; F41.9 Anxiety disorder, unspecified; F32.9 Major depressive disorder, single episode, unspecified; Z88.5 Allergy status to narcotic agent; Z88.0 Allergy status to penicillin; Z88.1 Allergy status to other antibiotic agents; Z88.8 Allergy status to other drugs, medicaments and biological substances; Z79.899 Other long term (current) drug therapy
CPT/HCPCS: 80053; 81001; 83690; 85025; 96374; 96376; 99284; J1170; J2405

== ENCOUNTER 2017-02-27 06:42 | Day surgery (SDC) | payer BC ==
--- NOTE | ~2017-02-27 | EGD ---
EGD REPORT [facility] [address] [place] [address] NAME: SHERRI CORDERO : 61 STATUS : REG [facility] PAT#: [id number] AGE: 51 ADM/REG DATE : 02/27/17 MR#: [id number] REPORT SERV DATE: 02/27/17 DICTATED BY: KAM DAWSON DATE: 02/27/17 REPORT STATUS : Draft TRANSCRIBED BY: [facility] DATE: 02/27/17 Endoscopy Center Patient Name: Sherri Cordero Date of : 1965 Attending MD: KAM DAWSON MD Procedure Date No Time: 02/27/2017 Procedure: Upper GI endoscopy Indications: For therapy of post-bariatric anastomotic stenosis, Nausea with vomiting Referring MD: SOHEILA MCGARRY MD, [facility] Medicines: Propofol per Anesthesia Complications: No immediate complications. Estimated blood loss: None. Procedure: Pre-Anesthesia Assessment: - After reviewing the risks and benefits, the patient was deemed in satisfactory condition to undergo the procedure. - Prior to the procedure, a History and Physical was performed, and patient medications and allergies were reviewed. The patient's tolerance of previous anesthesia was also reviewed. The risks and benefits of the procedure and the sedation options and risks were discussed with the patient. All questions were answered, and informed consent was obtained. Prior Anticoagulants: The patient has taken no previous anticoagulant or antiplatelet agents. ASA Grade Assessment: III - A patient with severe systemic disease. After reviewing the risks and benefits, the patient was deemed in satisfactory condition to undergo the procedure. After obtaining informed consent, the endoscope was passed under direct vision. Throughout the procedure, the patient's blood pressure, pulse, and oxygen saturations were monitored continuously. The GIF [id number] was introduced through the mouth, and advanced to the third part of duodenum. The upper GI endoscopy was accomplished without difficulty. The patient tolerated the procedure well. Findings: The examined esophagus was normal. There was evidence of a prior sleeve gastrectomy without obvious mechanical narrowing. A guidewire was placed and the scope was withdrawn. Dilation was performed with a Savary dilator with mild resistance at 36 Fr. Estimated blood loss: none. Repeat endoscopic examination after dilation revealed no injury. Diffuse mild inflammation characterized by erythema and granularity was EGD REPORT [address] [address] NAME: SHERRI CORDERO : 61 STATUS : REG [facility]#: [id number] AGE: 51 ADM/REG DATE : 02/27/17 MR#: [id number] REPORT SERV DATE: 02/27/17 DICTATED BY: KAM DAWSON DATE: 02/27/17 REPORT STATUS : Draft TRANSCRIBED BY: [employer] DATE: 02/27/17 found in the gastric antrum. Biopsies were taken with a cold forceps for histology. Estimated blood loss: none. There was also a small amout of retained food in the stomach. The examined duodenum was normal. Impression: - Normal esophagus. - Gastritis. Biopsied. - Normal examined duodenum. - Gastric sleeve dilated to 36 Fr. - Mild gastric stasis. - N/V associated with chronic opioid use. - Chronic gastric hyperlipasemia. Recommendation: - Discharge patient to home (ambulatory). - Clear liquid diet today then advance as tolerated. - Resume regular medications. - Patient has a contact number available for emergencies. The signs and symptoms of potential delayed complications were discussed with the patient. Return to normal activities tomorrow. Written discharge instructions were provided to the patient. Procedure Code(s): --- Professional --- 35721, Esophagogastroduodenoscopy, flexible, transoral; with dilation of gastric/duodenal stricture(s) (eg, balloon, bougie) 80223, Esophagogastroduodenoscopy, flexible, transoral; with biopsy, single or multiple Diagnosis Code(s): --- Professional --- K29.70, Gastritis, unspecified, without bleeding K95.89, Other complications of other bariatric procedure R11.2, Nausea with vomiting, unspecified CPT copyright 2013 [employer]. All rights reserved. The codes documented in this report are preliminary and upon auditing coder review may be revised to meet current compliance requirements. KAM DAWSON MD 02/27/2017 8:51 AM This report has been signed electronically. Number of Addenda: 0 Note Initiated On: 02/27/2017 8:11 AM EGD REPORT [facility] [address] [address] NAME: SHERRI CORDERO : 61 STATUS : REG [facility] PAT#: [id number] AGE: 51 ADM/REG DATE : 02/27/17 MR#: [id number] REPORT SERV DATE: 02/27/17 DICTATED BY: KAM DAWSON DATE: 02/27/17 REPORT STATUS : Draft TRANSCRIBED BY: [employer] DATE: 02/27/17 Scope Withdrawal Time 0 hours 0 minutes 0 seconds [address] [address]
[2017-05-02] MEDS ORDERED: PROAIR HFA INH (11:34)
[2017-05-02] MEDS ORDERED: DIL4TAB PO (11:37)
[2017-05-02] MEDS ORDERED: DIL2AMP IM (11:39)
== END 2017-02-27 23:59 | disposition home or self-care (01) ==
LOC: DMU 06:42
PROVIDERS: Internal Medicine Gastroenterology
PROC: 0DB68ZX Excision of Stomach, Via Natural or Artificial Opening Endoscopic, Diagnostic (ICD-10-PCS; principal; 2017-02-27 08:15)
DX: K29.70 Gastritis, unspecified, without bleeding (principal); K95.89 Other complications of other bariatric procedure; R11.2 Nausea with vomiting, unspecified; G47.30 Sleep apnea, unspecified; R13.10 Dysphagia, unspecified; E66.9 Obesity, unspecified; H81.09 Meniere's disease, unspecified ear; Z79.899 Other long term (current) drug therapy; Z88.0 Allergy status to penicillin; Z88.1 Allergy status to other antibiotic agents; Z88.5 Allergy status to narcotic agent; Z88.6 Allergy status to analgesic agent
CPT/HCPCS: 88305; J2405; J2550; J2765

== ENCOUNTER 2017-03-02 03:15 | Emergency (ER) | payer BC ==
[2017-03-02 04:18] LABS: BASOPHILS 0.5 %; BASOPHILS ABSOLUTE 0.04 10/3/uL (0.0-0.16); EOSINOPHILS 1.8 %; EOSINOPHILS ABSOLUTE 0.16 10/3/uL (0.0-0.53); HEMATOCRIT 36.1 % (36.0-48.0); HEMOGLOBIN 12.5 g/dL (12.0-16.0); IMMATURE GRANULOCYTES 0.2 %; IMMATURE GRANULOCYTES ABSOLUTE 0.02 10/3/uL (0.0-0.11); LYMPHOCYTES 33.3 %; LYMPHOCYTES ABSOLUTE 2.92 10/3/uL (0.67-4.30); MEAN CORPUS HGB CONC 34.6 g/dL (32.0-36.0); MEAN CORPUSCULAR HEMOGLOB 30.9 pg (26.0-34.0); MEAN CORPUSCULAR VOLUME 89.4 fL (80-100); MEAN PLATELET VOLUME 10.9 fL (9.2-13.0); NEUTROPHILS 56.2 %; NEUTROPHILS ABSOLUTE 4.92 10/3/uL (2.02-8.40); PLATELET COUNT 309 10/3/uL (150-400); RBC DISTRIBUTION WIDTH 15.9 % (12.0-16.0); RED CELL COUNT 4.04 10/6/uL (4.0-5.6)
[2017-03-02 04:20] LABS: ER CBC TAT 0 Hrs 07 Mins; WHITE BLOOD CELLS 8.8 10/3/uL (4.5-10.5)
[2017-03-02 04:21] LABS: MANUAL DIFF NO %
[2017-03-02 04:34] LABS: A/G RATIO 1.2 (0.7-1.9); ALBUMIN 3.5 G/DL (3.5-5.0); BUN (BLOOD UREA NITROGEN) 5 MG/DL (6-23); CALCIUM, SERUM 9.6 MG/DL (8.5-10.4); CHLORIDE, SERUM 107 MMOL/L (96-112); CO2 (CARBON DIOXIDE) 23 MMOL/L (24-34); CREATININE 0.75 MG/DL (0.55-1.02); GFR AFRICAN AMERICAN 105 ML/MIN (>=60); GFR NON AFRICAN AMERICAN 91 ML/MIN (>=60); GLUCOSE, SERUM 107 MG/DL (60-99); POTASSIUM, SERUM 3.4 MMOL/L (3.5-5.3); SGOT(AST) 28 U/L (5-40); SGPT(ALT) 24 U/L (5-65); SODIUM, SERUM 142 MMOL/L (135-148); TOTAL BILIRUBIN 0.6 MG/DL (0-1.2); TOTAL PROTEIN 6.5 G/DL (6.0-8.5)
[2017-03-02 04:35] LABS: ALKALINE PHOSPHATASE 111 U/L (45-117)
[2017-05-02] MEDS ORDERED: PROAIR HFA INH (11:34)
[2017-05-02] MEDS ORDERED: DIL4TAB PO (11:37)
[2017-05-02] MEDS ORDERED: DIL2AMP IM (11:39)
== END 2017-03-02 05:01 | disposition home or self-care (01) ==
LOC: ER 03:15
PROVIDERS: Emergency Medicine
DX: G89.29 Other chronic pain (principal); R10.9 Unspecified abdominal pain; R51 Headache; R11.2 Nausea with vomiting, unspecified; I10 Essential (primary) hypertension; F32.9 Major depressive disorder, single episode, unspecified; F41.9 Anxiety disorder, unspecified; Z88.0 Allergy status to penicillin; Z88.1 Allergy status to other antibiotic agents; Z88.8 Allergy status to other drugs, medicaments and biological substances; Z79.899 Other long term (current) drug therapy
CPT/HCPCS: 80053; 83690; 85025; 96372; 96374; 99284; A9270-GY; J1200; J1885; J2405; J2765

== ENCOUNTER 2017-03-03 21:15 | Inpatient (IN) | payer BC ==
--- NOTE | ~2017-03-03 | CN ---
Consultation Report [facility] [address] [place]. [address] NAME: MICH MARIN : 61 STATUS : ADM [place] PAT#: [id number] AGE: 51 ADM/REG DATE : 03/03/17 MR#: [id number] REPORT SERV DATE: 03/04/17 DICTATED BY: JORDAN SANON DATE: 03/04/17 REPORT STATUS : Draft TRANSCRIBED BY: MODL DATE: 03/04/17 CONSULTATION DATE OF CONSULTATION: HISTORY OF PRESENT ILLNESS: This 51-year-old had a history of gastric band, which was converted to sleeve resection in December. Subsequent to that time, she has had problems with nausea, vomiting, abdominal pain. She has been admitted multiple times. She has basically been on liquids. Six days ago, she had a dilatation of her gastric sleeve to 36- Omani. She presented again with pain, nausea, and vomiting. She vomits up bilious material. She also has Meniere's and migraine. Headache comes on after the vomiting starts. She has had CTs without contrast. She has not had standard upper GI series or small bowel. PAST MEDICAL HISTORY: Meniere's, vestibular problems with geniculate neuralgia, hypertension. SOCIAL HISTORY: Gastric sleeve with resection, abdominoplasty. Nonsmoker. PHYSICAL EXAMINATION: VITAL SIGNS: Blood pressure 143/105, pulse 100. GENERAL: Does not look in acute distress. THROAT: Trachea mid line. CHEST: Clear to A&P. CARDIAC: Normal. ABDOMEN: Quite soft, nontender. IMPRESSION: Episodes of nausea and vomiting of bilious material, which came on after her sleeve resection. Interestingly, she does not really vomit up the food. Question is whether this is related to the sleeve resection or she has some intermittent obstruction further down. The fact that she vomits up bile, makes me think that the problem may be further down, also could be a motility issue. PLAN: We will do upper GI small bowel series with contrast to look for how the gastric pouch empties and whether that could be obstruction further down the proximal small bowel. MG/JEWEL Jordan Sanon M.D. / [id number] Consultation Report [place] [id number] [facility] [place]. [address] NAME: MICH MARIN : 61 STATUS : ADM [place] PAT#: [id number] AGE: 51 ADM/REG DATE : 03/03/17 MR#: [id number] REPORT SERV DATE: 03/04/17 DICTATED BY: JORDAN SANON DATE: 03/04/17 REPORT STATUS : Draft TRANSCRIBED BY: JUDIL DATE: 03/04/17 CC: Doug Cardenas M.D. Alan Shikoh, M.D.
--- NOTE | ~2017-03-03 | DS ---
Discharge Summary [facility] [address] [place]. [address] NAME: MICH MARIN : 61 STATUS : DIS IN PAT#: [id number] AGE: 51 ADM/REG DATE : 03/03/17 MR#: [id number] REPORT SERV DATE: 03/10/17 DICTATED BY: KELLY SAVAGE DATE: 03/09/17 REPORT STATUS : Draft TRANSCRIBED BY: MODL DATE: 03/09/17 ADMISSION DATE: 03/03/2017 DISCHARGE DATE: 03/09/2017 REASON FOR ADMISSION: Intractable nausea, vomiting. HPI: Please refer to Dr. Shabbir Borja's history and physical dated 03/04, for complete details regarding the patient's admission. I believe the patient was rehospitalized for the fourth admission in around 2-month period for intractable nausea and vomiting. HOSPITAL COURSE: The patient had an uncomplicated hospital course. We had consulted Dr. Howell as the patient had a recent dilatation by him. She was started on IV Phenergan and Zofran. We continued all of her multiple home medications. We obtained records from her [place] neurologist, Dr. Dorantes. We had weaned her off Dilaudid. I had long talks with her regarding the use of narcotics as the patient never really seemed in significant pain and how it can contribute to motility issues. She did not seem to vomit, but complained of nausea almost everyday. There were times periods where she would tolerate a fried fish sandwich, but then could not tolerate anything else. Everyday she felt about the same. Dr. Howell had signed off after starting her on Levsin as he had nothing else to offer and felt that she had reached maximum hospitalization. GI Medicine thought that her issues were not from a mechanical obstruction, but likely a functional issue. She did have a small bowel follow through, which showed some reflux material suggestive of evidence of esophagitis otherwise normal. On the day of discharge, the patient was still feeling nauseated, but thought that she will be okay going home. I encouraged her to continue trying her oral medications. She has been able to tolerate all of her oral meds. From time to time, she will refuse to take the Reglan. We have not been giving her anything. She has been getting some p.r.n. IV Zofran, but also sublingual Zofran. She has reached maximum hospitalization and I am concerned that her intractable nausea and vomiting likely due to cyclic vomiting syndrome versus dysmotility issue. She has a high rate of readmission as demonstrated by her fourth admission in a 2-month time period. Again, patient has reached maximum hospitalization. She has been ambulating in the halls. She will be discharged home today in stable condition followed by Dr. Howell and Dr. Dorantes, her neurologist in [place]. DISCHARGE DIAGNOSES: 1. Intractable nausea, vomiting with likely cyclic vomiting syndrome versus dysmotility issue. 2. Meniere disease. 3. History of gastric sleeve. 4. Incidental pulmonary finding of a nodule. 5. Hiatal hernia. 6. Major depressive disorder. 7. Seasonal asthma. 8. Obstructive sleep apnea. 9. Obesity. 10.Hypertension. Discharge Summary [address] [address] NAME: MICH MARIN : 61 STATUS : DIS IN PAT#: [id number] AGE: 51 ADM/REG DATE : 03/03/17 MR#: [id number] REPORT SERV DATE: 03/10/17 DICTATED BY: KELLY SAVAGE DATE: 03/09/17 REPORT STATUS : Draft TRANSCRIBED BY: JEWEL DATE: 03/09/17 PROCEDURES: Consultation with Dr. Howell and CT scan of the abdomen and pelvis without contrast and small bowel followthrough. DISCHARGE MEDICATIONS: Include: 1. Sinemet 25/100, 1 tab at bedtime. 2. Marinol 10 mg twice a day p.r.n. 3. Magnesium oxide 400 mg daily. 4. Reglan 5 mg with meals p.r.n. 5. Multivitamin daily. 6. Bystolic 10 mg daily. 7. Requip 1 mg every morning, then 2 mg at bedtime. 8. Protonix 40 mg twice a day. 9. Carafate 1 g before meals. 10.Thiamine 100 mg daily. 11.Antivert p.r.n. 12.Albuterol p.r.n. 13.Benadryl p.r.n. 14.Zofran p.r.n. 15.Phenergan p.r.n. 16.Norflex 30 mg every 12 hours IM p.r.n. migraines. 17.Dilaudid 2 mg as needed for pain. 18.Potassium chloride 20 mEq every day. 19.Valium 5 mg p.r.n. 20.Levsin 0.125 mg 1 to 2 tablets 3 times a day p.r.n. abdominal spasm. The patient will follow up with Dr. Howell, Dr. Dorantes, Dr. Manzano. This is Dr. Kelly Savage spending over 30 minutes discharge planning and coordination of care on this patient. The patient will follow up with Dr. Howell in 1 week to consider a followup with GI dysmotility specialist at [place] for her issue. CHRISTY/JEWEL Kelly Savage MD / [id number] CC: MD Arjun Guzman M.D. Jaime Ponce-Portugal, M.D. Alan Shikoh, M.D. Discharge Summary [address] [address] NAME: MICH MARIN : 61 STATUS : DIS IN PAT#: [id number] AGE: 51 ADM/REG DATE : 03/03/17 MR#: [id number] REPORT SERV DATE: 03/10/17 DICTATED BY: KELLY SAVAGE DATE: 03/09/17 REPORT STATUS : Draft TRANSCRIBED BY: MODL DATE: 03/09/17 LAINE DORANTES MD
--- NOTE | ~2017-03-03 | HP ---
History And Physical [address] [place]. [address] NAME: MICH MARIN : 61 STATUS : ADM Wilber PAT#: [id number] AGE: 51 ADM/REG DATE : 03/03/17 MR#: [id number] REPORT SERV DATE: 03/04/17 DICTATED BY: RY MCCLAIN DATE: 03/04/17 REPORT STATUS : Draft TRANSCRIBED BY: MODMariam DATE: 03/04/17 DATE OF ADMISSION: 03/03/2017 CHIEF COMPLAINT: Nausea, vomiting. HISTORY OF PRESENT ILLNESS: The patient is a 51-year-old female with past medical history of hypertension, hiatal hernia, IBS anxiety, chronic pain with recurrent stomach dilatations by Dr. Howell and still was having subsequent nausea and vomiting, also prior surgery by Dr. Manzano, who comes in for nausea and vomiting. For additional HPI, the patient has been having episodes of nausea, vomiting after stomach dilatation but that has been progressive over the last two days to one week. Symptoms were constant, moderate in severity, dull, nonradiating. No fevers, chills, or shortness of breath but just generalized weakness. No diarrhea currently. Mild dizziness. There are no worsening or relieving symptoms. Symptoms are currently present. The patient reports that she has had many different flares of this similar episode and has been told that she has had food products still in her stomach when she has had endoscopies even 24 hours later. REVIEW OF SYSTEMS: For 10-point review of systems negative except that noted in the HPI. PAST MEDICAL HISTORY: Meniere's disease followed by Dr. Manzano and Dr. Case, recent gastric sleeve surgery converted from Lap-Band, morbid obesity, vestibular problems with geniculate neuralgia, anxiety, depression, hypertension, IBS, CORI, migraines, and recurrent nausea and vomiting. SURGICAL HISTORY: Gastric band converted to gastric sleeve, hernia repair, partial hysterectomy, cystopexy, abdominal plasty, cervical fusion. ALLERGIES: PENICILLIN, CIPRO, HYDROCODONE, OXYCODONE, NSAIDS, PROPOXYPHENE. SOCIAL HISTORY: No smoking, alcohol, or illicits. Sees Pain Management. FAMILY HISTORY: Diabetes and obesity. MEDICATIONS: ProAir, Sinemet, Valium, Benadryl, Marinol with Dilaudid p.o., Mag oxide, Antivert, Reglan, multivitamin, Bystolic, Zofran, Norflex, potassium, Phenergan, Requip, Carafate, and thiamine. PHYSICAL EXAMINATION: VITAL SIGNS: The patient blood pressure 143/105, temperature 97.8, pulse 100, respirations 16, O2 saturations 98% on room air. GENERAL: Mild discomfort, appears older than stated age and obese. EYES: No scleral icterus. ENT: Nares patent but dry mucous membranes. RESPIRATORY: Clear to auscultation. No wheezes. CV: Regular rate. No rubs. History And Physical [address] [place]. [address] NAME: MICH MARIN : 61 STATUS : ADM Wilber PAT#: [id number] AGE: 51 ADM/REG DATE : 03/03/17 MR#: [id number] REPORT SERV DATE: 03/04/17 DICTATED BY: RY MCCLAIN DATE: 03/04/17 REPORT STATUS : Draft TRANSCRIBED BY: JEWEL DATE: 03/04/17 GI: Soft, nontender. Negative rebound. : Deferred. MUSCULOSKELETAL: Moves all extremities. SKIN: Warm and dry. No tenting. LYMPH: No cervical or supraclavicular lymphadenopathy. No pedal edema. HEME: No bleeding or bruising. NEURO: Alert and oriented. Moves all extremities. Psych: Anxious, redirectable. LABS AND IMAGING: CT: No acute abdominal pathology, nonspecific hepatic steatosis pattern, small left adrenal adenoma, postsurgical changes from augmentation, small 2.7 cm hiatal hernia, subtle 1 mm nodular density scattered in lower lobes, new from prior exam and most consistent with benign infectious or inflammatory disease process. CMP: Bicarb 22, glucose 121, alkaline phosphatase 127, lipase of 449. CBC: Grossly within normal limits. ASSESSMENT: 1. Intractable nausea and vomiting. 2. Meniere's disease. 3. Gastric sleeve. 4. Mildly elevated lipase. 5. Incidental pulmonary finding. 6. Hiatal hernia. PLAN: 1. For intractable nausea and vomiting, IV Phenergan and Zofran. Questionable delayed motility history. We will notify Dr. Manzano per patient's request. Supportive treatment. May require GI, Dr. Howell, consultation, abdominal stretching prior. 2. Meniere's disease. Continue home medications. Sees Dr. Case, neurologist. 3. Gastric sleeve per Dr. Manzano. We will notify per patient's request. 4. Mild elevated lipase, IV fluids, positive nausea and vomiting. CT has already been performed. 5. Incidental pulmonary disease, possible followup chest x-ray. No signs of acute infection, possible cause from nausea, vomiting episodes. 6. Hiatal hernia. Per Dr. Howell, recently had dilatation and supportive treatment. DDN/MODL Ry Mcclain MD / [id number] History And Physical [address] [address] NAME: MICH MARIN : 61 STATUS : ADM Wilber PAT#: [id number] AGE: 51 ADM/REG DATE : 03/03/17 MR#: [id number] REPORT SERV DATE: 03/04/17 DICTATED BY: RY MCCLAIN DATE: 03/04/17 REPORT STATUS : Draft TRANSCRIBED BY: MODL DATE: 03/04/17 CC: Doug Cardenas M.D.
[2017-03-03 19:11] LABS: BASOPHILS 0.4 %; BASOPHILS ABSOLUTE 0.03 10/3/uL (0.0-0.16); EOSINOPHILS 0.6 %; EOSINOPHILS ABSOLUTE 0.05 10/3/uL (0.0-0.53); ER CBC TAT 0 Hrs 08 Mins; HEMATOCRIT 39.7 % (36.0-48.0); HEMOGLOBIN 13.3 g/dL (12.0-16.0); IMMATURE GRANULOCYTES 0.2 %; IMMATURE GRANULOCYTES ABSOLUTE 0.02 10/3/uL (0.0-0.11); LYMPHOCYTES 21.3 %; LYMPHOCYTES ABSOLUTE 1.81 10/3/uL (0.67-4.30); MEAN CORPUS HGB CONC 33.5 g/dL (32.0-36.0); MEAN CORPUSCULAR HEMOGLOB 30.2 pg (26.0-34.0); MEAN CORPUSCULAR VOLUME 90.2 fL (80-100); MEAN PLATELET VOLUME 10.1 fL (9.2-13.0); MONOCYTES 5.6 %; MONOCYTES ABSOLUTE 0.48 10/3/uL (0.21-1.20); NEUTROPHILS 71.9 %; NEUTROPHILS ABSOLUTE 6.12 10/3/uL (2.02-8.40); PLATELET COUNT 277 10/3/uL (150-400); RBC DISTRIBUTION WIDTH 15.1 % (12.0-16.0); WHITE BLOOD CELLS 8.5 10/3/uL (4.5-10.5)
[2017-03-03 19:12] LABS: MANUAL DIFF NO %
[2017-03-03 19:32] LABS: ALBUMIN 3.8 G/DL (3.5-5.0); ALKALINE PHOSPHATASE 127 U/L (45-117); BUN (BLOOD UREA NITROGEN) 8 MG/DL (6-23); CALCIUM, SERUM 9.6 MG/DL (8.5-10.4); CHLORIDE, SERUM 105 MMOL/L (96-112); CO2 (CARBON DIOXIDE) 22 MMOL/L (24-34); CREATININE 0.99 MG/DL (0.55-1.02); GFR AFRICAN AMERICAN 75 ML/MIN (>=60); GFR NON AFRICAN AMERICAN 65 ML/MIN (>=60); GLOBULIN 3.7 G/DL (2.5-4.1); GLUCOSE, SERUM 121 MG/DL (60-99); POTASSIUM, SERUM 3.5 MMOL/L (3.5-5.3); SGOT(AST) 37 U/L (5-40); SGPT(ALT) 28 U/L (5-65); SODIUM, SERUM 140 MMOL/L (135-148); TOTAL BILIRUBIN 0.9 MG/DL (0-1.2); TOTAL PROTEIN 7.5 G/DL (6.0-8.5)
[2017-03-04 06:15] LABS: BASOPHILS 0.3 %; BASOPHILS ABSOLUTE 0.02 10/3/uL (0.0-0.16); EOSINOPHILS 0.1 %; EOSINOPHILS ABSOLUTE 0.01 10/3/uL (0.0-0.53); HEMOGLOBIN 11.3 g/dL (12.0-16.0); IMMATURE GRANULOCYTES 0.1 %; IMMATURE GRANULOCYTES ABSOLUTE 0.01 10/3/uL (0.0-0.11); LYMPHOCYTES 29.2 %; LYMPHOCYTES ABSOLUTE 2.17 10/3/uL (0.67-4.30); MEAN CORPUS HGB CONC 33.2 g/dL (32.0-36.0); MEAN CORPUSCULAR HEMOGLOB 30.5 pg (26.0-34.0); MEAN CORPUSCULAR VOLUME 91.9 fL (80-100); MEAN PLATELET VOLUME 10.2 fL (9.2-13.0); MONOCYTES 5.9 %; MONOCYTES ABSOLUTE 0.44 10/3/uL (0.21-1.20); NEUTROPHILS 64.4 %; NEUTROPHILS ABSOLUTE 4.78 10/3/uL (2.02-8.40); PLATELET COUNT 237 10/3/uL (150-400); RBC DISTRIBUTION WIDTH 15.2 % (12.0-16.0); WHITE BLOOD CELLS 7.4 10/3/uL (4.5-10.5)
[2017-03-04 06:16] LABS: MANUAL DIFF NO %
[2017-03-04 06:22] LABS: ALBUMIN 3.2 G/DL (3.5-5.0); BUN (BLOOD UREA NITROGEN) 7 MG/DL (6-23); CHLORIDE, SERUM 110 MMOL/L (96-112); CO2 (CARBON DIOXIDE) 23 MMOL/L (24-34); GFR AFRICAN AMERICAN 115 ML/MIN (>=60); GFR NON AFRICAN AMERICAN 99 ML/MIN (>=60); POTASSIUM, SERUM 3.6 MMOL/L (3.5-5.3); SGOT(AST) 22 U/L (5-40); SGPT(ALT) 24 U/L (5-65); SODIUM, SERUM 143 MMOL/L (135-148); TOTAL BILIRUBIN 0.6 MG/DL (0-1.2)
[2017-03-04 06:23] LABS: A/G RATIO 1.2 (0.7-1.9); ALKALINE PHOSPHATASE 100 U/L (45-117); GLOBULIN 2.7 G/DL (2.5-4.1); GLUCOSE, SERUM 94 MG/DL (60-99); TOTAL PROTEIN 5.9 G/DL (6.0-8.5)
[2017-03-08 11:31] LABS: BASOPHILS 0.4 %; BASOPHILS ABSOLUTE 0.02 10/3/uL (0.0-0.16); EOSINOPHILS ABSOLUTE 0.26 10/3/uL (0.0-0.53); HEMATOCRIT 35.6 % (36.0-48.0); HEMOGLOBIN 11.5 g/dL (12.0-16.0); IMMATURE GRANULOCYTES 0.2 %; IMMATURE GRANULOCYTES ABSOLUTE 0.01 10/3/uL (0.0-0.11); LYMPHOCYTES 37.6 %; LYMPHOCYTES ABSOLUTE 1.94 10/3/uL (0.67-4.30); MEAN CORPUS HGB CONC 32.3 g/dL (32.0-36.0); MEAN CORPUSCULAR HEMOGLOB 30.3 pg (26.0-34.0); MEAN CORPUSCULAR VOLUME 93.9 fL (80-100); MONOCYTES ABSOLUTE 0.31 10/3/uL (0.21-1.20); NEUTROPHILS 50.8 %; NEUTROPHILS ABSOLUTE 2.62 10/3/uL (2.02-8.40); PLATELET COUNT 175 10/3/uL (150-400); RBC DISTRIBUTION WIDTH 15.6 % (12.0-16.0); RED CELL COUNT 3.79 10/6/uL (4.0-5.6); WHITE BLOOD CELLS 5.2 10/3/uL (4.5-10.5)
[2017-03-08 11:33] LABS: MANUAL DIFF NO %
[2017-03-08 11:47] LABS: A/G RATIO 1.2 (0.7-1.9); ALBUMIN 2.9 G/DL (3.5-5.0); CALCIUM, SERUM 9.1 MG/DL (8.5-10.4); CHLORIDE, SERUM 109 MMOL/L (96-112); GFR AFRICAN AMERICAN 115 ML/MIN (>=60); GFR NON AFRICAN AMERICAN 99 ML/MIN (>=60); GLOBULIN 2.4 G/DL (2.5-4.1); GLUCOSE, SERUM 88 MG/DL (60-99); POTASSIUM, SERUM 3.3 MMOL/L (3.5-5.3); SGOT(AST) 15 U/L (5-40); SGPT(ALT) 11 U/L (5-65); SODIUM, SERUM 145 MMOL/L (135-148); TOTAL BILIRUBIN 0.5 MG/DL (0-1.2); TOTAL PROTEIN 5.3 G/DL (6.0-8.5)
[2017-03-08 11:48] LABS: ALKALINE PHOSPHATASE 80 U/L (45-117); BUN (BLOOD UREA NITROGEN) 2 MG/DL (6-23); CO2 (CARBON DIOXIDE) 28 MMOL/L (24-34)
[2017-03-09 11:01] LABS: BUN (BLOOD UREA NITROGEN) 3 MG/DL (6-23); CALCIUM, SERUM 8.7 MG/DL (8.5-10.4); CHLORIDE, SERUM 111 MMOL/L (96-112); CO2 (CARBON DIOXIDE) 24 MMOL/L (24-34); CREATININE 0.91 MG/DL (0.55-1.02); GFR AFRICAN AMERICAN 83 ML/MIN (>=60); GFR NON AFRICAN AMERICAN 72 ML/MIN (>=60); GLUCOSE, SERUM 96 MG/DL (60-99); POTASSIUM, SERUM 3.7 MMOL/L (3.5-5.3); SODIUM, SERUM 143 MMOL/L (135-148)
[2017-03-09] MEDS ORDERED: PROTONIX PO (14:34)
[2017-03-09] MEDS ORDERED: LEVSINTAB PO (14:34)
[2017-05-02] MEDS ORDERED: PROAIR HFA INH (11:34)
[2017-05-02] MEDS ORDERED: DIL4TAB PO (11:37)
[2017-05-02] MEDS ORDERED: DIL2AMP IM (11:39)
== END 2017-03-09 15:43 | disposition home or self-care (01) | DRG 392 ==
LOC: ER 21:15 → 5SO 23:53
PROVIDERS: Internal Medicine; Internal Medicine Nephrology; Student in an Organized Health Care Education/Training Program
DX: R11.2 Nausea with vomiting, unspecified (principal); E66.01 Morbid (severe) obesity due to excess calories; I10 Essential (primary) hypertension; K21.9 Gastro-esophageal reflux disease without esophagitis; T40.0X5A Adverse effect of opium, initial encounter; H81.03 Meniere's disease, bilateral; K44.9 Diaphragmatic hernia without obstruction or gangrene; G47.33 Obstructive sleep apnea (adult) (pediatric); G89.29 Other chronic pain; Z98.84 Bariatric surgery status; Z88.0 Allergy status to penicillin; Z88.1 Allergy status to other antibiotic agents; Z88.5 Allergy status to narcotic agent; Z88.8 Allergy status to other drugs, medicaments and biological substances; Z88.6 Allergy status to analgesic agent; Z68.34 Body mass index [BMI] 34.0-34.9, adult; K58.0 Irritable bowel syndrome with diarrhea; Z79.899 Other long term (current) drug therapy; Z98.890 Other specified postprocedural states; R51 Headache; R10.9 Unspecified abdominal pain; F32.9 Major depressive disorder, single episode, unspecified; F41.9 Anxiety disorder, unspecified
CPT/HCPCS: 74176; 74249; 80048; 80053; 81001; 82533; 83690; 83735; 85025; 96372; 96374; 96375; 96376; 99284; 99285; A9270-GY; J1170; J1200; J1885; J2360; J2405; J2550; J2765; J3411

== ENCOUNTER 2017-03-15 18:54 | Emergency (ER) | payer BC ==
[2017-03-15 18:05] LABS: BASOPHILS 0.4 %; BASOPHILS ABSOLUTE 0.03 10/3/uL (0.0-0.16); EOSINOPHILS 1.1 %; EOSINOPHILS ABSOLUTE 0.09 10/3/uL (0.0-0.53); HEMATOCRIT 38.5 % (36.0-48.0); HEMOGLOBIN 12.9 g/dL (12.0-16.0); IMMATURE GRANULOCYTES 0.3 %; IMMATURE GRANULOCYTES ABSOLUTE 0.02 10/3/uL (0.0-0.11); LYMPHOCYTES 20.1 %; MEAN CORPUS HGB CONC 33.5 g/dL (32.0-36.0); MEAN CORPUSCULAR HEMOGLOB 30.7 pg (26.0-34.0); MEAN CORPUSCULAR VOLUME 91.7 fL (80-100); MEAN PLATELET VOLUME 9.6 fL (9.2-13.0); MONOCYTES 3.9 %; MONOCYTES ABSOLUTE 0.31 10/3/uL (0.21-1.20); NEUTROPHILS 74.2 %; RBC DISTRIBUTION WIDTH 15.6 % (12.0-16.0)
[2017-03-15 18:06] LABS: MANUAL DIFF NO %; PLATELET COUNT 236 10/3/uL (150-400)
[2017-03-15 18:12] LABS: INTERNATIONAL NORMAL RATI 1.1 UNITS (-); PARTIAL THROMBO TIME 32.8 SEC (22.5-37.2); PROTIME (NOT ORD) 13.7 SEC (12.0-14.5)
[2017-03-15 18:22] LABS: CALCIUM, SERUM 9.4 MG/DL (8.5-10.4); CHEST PAIN PROFILE TAT 0 Hrs 22 Mins; CHLORIDE, SERUM 107 MMOL/L (96-112); CO2 (CARBON DIOXIDE) 28 MMOL/L (24-34); GFR AFRICAN AMERICAN 98 ML/MIN (>=60); GFR NON AFRICAN AMERICAN 84 ML/MIN (>=60); GLUCOSE, SERUM 113 MG/DL (60-99); POTASSIUM, SERUM 3.2 MMOL/L (3.5-5.3); SODIUM, SERUM 143 MMOL/L (135-148); TROPONIN I <0.02 NG/ML (<0.05)
[2017-03-15 18:23] LABS: BUN (BLOOD UREA NITROGEN) 9 MG/DL (6-23)
[~2017-03-15 18:54] MED LIST changes: +LEVSINTAB PO
[2017-03-15 20:10] LABS: ASCORBIC ACID (UR NOT ORDER) NEG (NEG); BILIRUBIN, URINE NEGATIVE (NEG); ER URINALYSIS TAT 0 Hrs 18 Mins; KETONE, URINE 20 MG/DL (NEG); LEUKOCYTE ESTERASE(NOT OR MOD (NEG); NITRITE (URINE) NEG (NEG); WBC (NOT ORDERED) (RFLEX) 53 (0-5)
[2017-05-02] MEDS ORDERED: PROAIR HFA INH (11:34)
[2017-05-02] MEDS ORDERED: DIL4TAB PO (11:37)
[2017-05-02] MEDS ORDERED: DIL2AMP IM (11:39)
== END 2017-03-15 21:10 | disposition home or self-care (01) ==
LOC: ER 18:54
PROVIDERS: Emergency Medicine
DX: N39.0 Urinary tract infection, site not specified (principal); K31.89 Other diseases of stomach and duodenum; I10 Essential (primary) hypertension; F32.9 Major depressive disorder, single episode, unspecified; F41.9 Anxiety disorder, unspecified; Z88.6 Allergy status to analgesic agent; Z88.0 Allergy status to penicillin; Z88.1 Allergy status to other antibiotic agents; Z88.5 Allergy status to narcotic agent; Z79.899 Other long term (current) drug therapy
CPT/HCPCS: 71020; 74020; 80048; 81001; 83690; 83735; 84484; 85025; 85610; 85730; 87077; 87086; 87186; 93005; 96374; 96375; 96376; 99285; A9270-GY; J1170; J2405; J2550; J2765

== ENCOUNTER 2017-04-10 19:43 | Emergency (ER) | payer BC ==
[2017-04-10 21:37] LABS: A/G RATIO 1.2 (0.7-1.9); ALBUMIN 3.3 G/DL (3.5-5.0); ALKALINE PHOSPHATASE 90 U/L (45-117); BUN (BLOOD UREA NITROGEN) 6 MG/DL (6-23); CALCIUM, SERUM 8.8 MG/DL (8.5-10.4); CHLORIDE, SERUM 110 MMOL/L (96-112); CO2 (CARBON DIOXIDE) 25 MMOL/L (24-34); CREATININE 0.71 MG/DL (0.55-1.02); GFR AFRICAN AMERICAN 113 ML/MIN (>=60); GFR NON AFRICAN AMERICAN 97 ML/MIN (>=60); GLOBULIN 2.8 G/DL (2.5-4.1); GLUCOSE, SERUM 79 MG/DL (60-99); POTASSIUM, SERUM 4.4 MMOL/L (3.5-5.3); SGOT(AST) 51 U/L (5-40); SGPT(ALT) 34 U/L (5-65); SODIUM, SERUM 140 MMOL/L (135-148); TOTAL BILIRUBIN 0.6 MG/DL (0-1.2); TOTAL PROTEIN 6.1 G/DL (6.0-8.5)
[2017-05-02] MEDS ORDERED: PROAIR HFA INH (11:34)
[2017-05-02] MEDS ORDERED: DIL4TAB PO (11:37)
[2017-05-02] MEDS ORDERED: DIL2AMP IM (11:39)
== END 2017-04-10 22:16 | disposition home or self-care (01) ==
LOC: ER 19:43
PROVIDERS: Nurse Practitioner
DX: R11.2 Nausea with vomiting, unspecified (principal); E88.09 Other disorders of plasma-protein metabolism, not elsewhere classified; R10.84 Generalized abdominal pain; Z90.710 Acquired absence of both cervix and uterus; Z98.84 Bariatric surgery status; Z88.0 Allergy status to penicillin; Z88.1 Allergy status to other antibiotic agents; Z88.8 Allergy status to other drugs, medicaments and biological substances; Z79.899 Other long term (current) drug therapy
CPT/HCPCS: 80053; 81001; 83690; 85025; 96374; 96375; 99284; A9270-GY; J1200; J1885; J2405; J2550

== ENCOUNTER 2017-04-17 09:34 | Inpatient (IN) | payer BC ==
--- NOTE | ~2017-04-17 | HP ---
History And Physical [id number] [facility] [place]. [address] NAME: MICH MARIN : 61 STATUS : ADM Wilber PAT#: [id number] AGE: 51 ADM/REG DATE : 04/17/17 MR#: [id number] REPORT SERV DATE: 04/18/17 DICTATED BY: ALICIA RIBERA DATE: 04/17/17 REPORT STATUS : Draft TRANSCRIBED BY: MODMariam DATE: 04/17/17 DATE OF ADMISSION: 04/17/2017 DICTATED BY: Venus Martinez APRN, MERCEDES-Jesi, NAZ CHIEF COMPLAINT: Intractable nausea, dry heaves, and vomiting. HISTORY OF PRESENT ILLNESS: The patient is a 51-year-old white female with a long history . She is status post bariatric surgery, having had a previous lap band surgery with recent conversion from band to a sleeve gastrectomy in December 2016. She also has a history of chronic Meniere disease, vestibular suppression, geniculate neuralgia, and Meniere migraines. This causes a great deal of chronic dizziness, nausea, vomiting, and has complicated her current situation. She has been admitted multiple times over the last few months due to the symptoms of nausea and vomiting. It is likely a combination of central nausea as well as spasm, irritation, and gastritis of the stomach from the sleeve, associated with the retching. She has been seen in the ER and has also undergone a hospitalization for about a week at [facility]. In February, she underwent EGD with Savary dilation at [facility]. This initially created some improvement of symptoms over the first 48-72 hours, however, her symptoms quickly returned and at the end of February, she had to undergo EGD with balloon dilation by Dr. Allen Howell. These symptoms are intermittent, although they have been steady over the last one to two weeks. She is being admitted today to undergo stent placement by Dr. Howell, be placed on TPN for nutrition and IV hydration. PAST MEDICAL HISTORY: Significant as discussed above as well as anxiety, depression, hypertension, and sleep apnea. PAST SURGICAL HISTORY: In 1996, cervical fusion; 2003, abdominoplasty; 2004, thigh lift; 06/16/2005, laparoscopically repair of hiatal hernia with preservation of gastric banding; 2009, partial laparoscopic vaginal hysterectomy; 2009, replacement of lap band; 2011 cystopexy; and 12/23/2016, gastric band explantation and conversion to laparoscopic sleeve gastrectomy. FAMILY HISTORY: Noncontributory. MEDICATIONS: The patient takes multiple medications for her Meniere disease, including Benadryl, Marinol, meclizine, ondansetron, promethazine. Additionally, she take estradiol, lorazepam, Robaxin, ropinirole, sertraline, topiramate, trazodone, and triamterene 37.5 mg/hydrochlorothiazide 25 mg tablets. SOCIAL HISTORY: The patient denies nicotine use or EtOH use or abuse. ALLERGIES: ALLERGIES INCLUDE CIPRO, DARVOCET-N, PENICILLINS, AND PERCOCET. REVIEW OF SYSTEMS: Please refer to history of present illness. History And Physical [address] [place]. [address] NAME: MICH MARIN : 61 STATUS : ADM Wilber PAT#: [id number] AGE: 51 ADM/REG DATE : 04/17/17 MR#: [id number] REPORT SERV DATE: 04/18/17 DICTATED BY: ALICIA RIBERA DATE: 04/17/17 REPORT STATUS : Draft TRANSCRIBED BY: JEWEL DATE: 04/17/17 PHYSICAL EXAMINATION: GENERAL: The patient is a 51-year-old white female. CONSTITUTIONAL/GENERAL APPEARANCE: Well nourished, obese, no acute distress, ambulating normally to bathroom. HEENT: Head: Pupils are equal, round, and reactive to light. Ear, Nose, and Throat: ENT within normal limits. NECK: Supple. Trachea midline. No masses. CARDIOVASCULAR: Regular rate and rhythm. LUNGS: Respiratory effort without dyspnea, auscultation. No wheezing, rales, crackles, or rhonchi. Breath sounds are normal. Clear to auscultation. ABDOMEN: Inspection and palpation, no tenderness, guarding, or masses. Abdomen is soft and nondistended. Bowel sounds are normal. PSYCHIATRIC: Good judgment and insight. The patient is alert and oriented to time, place, and person. LABORATORY DATA: Labs show hypokalemia at 3.4, this should be corrected with TPN use. White blood count is within normal limits. ASSESSMENT AND PLAN: This is a 51-year-old white female, who underwent removal of her lap band with conversion to the laparoscopic sleeve gastrectomy in December 2016. She has developed intractable dry heaves, nausea, and vomiting, likely related to central nausea and her Meniere disease. This chronic retching, nausea, and vomiting have created irritation to the sleeve gastrectomy resulting in gastritis. At this time, the patient is being admitted for IV hydration, parenteral nutrition, and placement of a gastric stent by Dr. Allen Howell. The patient is scheduled for stent placement today. We are admitting the patient in order to make her more comfortable as we are awaiting the stent placement and give her IV hydration in the mean time as well as draw labs and ordered TPN nutrition. The patient is n.p.o. for today's procedure, which is scheduled shortly after lunch. We plan on leaving stent for one to two weeks as tolerates by the patient. The patient is currently receiving IV antibiotics, pain medication as needed. Thiamine and LR at 125 mL/hour. REESE/JEWEL Alicia Herrmann M.D. / [id number] CC: Doug Puentes M.D.
--- NOTE | ~2017-04-17 | OP ---
Record Of Operation [facility] [address] [place]. [address] NAME: MICH MARIN : 61 STATUS : ADM IN PAT#: [id number] AGE: 51 ADM/REG DATE : 04/17/17 MR#: [id number] REPORT SERV DATE: 04/19/17 DICTATED BY: ALLEN HOWELL DATE: 04/19/17 REPORT STATUS : Draft TRANSCRIBED BY: JWEEL DATE: 04/19/17 DATE OF PROCEDURE: PROCEDURE: EGD with fluoroscopic placement of metallic stent in gastric sleeve. INDICATION: Nausea and vomiting after sleeve gastrectomy. MEDICATIONS: General endotracheal anesthesia. PERFORMANCE IMPROVEMENT SPECIALIST: Allen Howell M.D. COMPLICATIONS: None. HISTORY: This woman had intractable nausea and vomiting since sleeve gastrectomy. She has a lot of central issues as well, has Meniere. She had a Savary dilation and a balloon dilation of the sleeve without any permanent improvement. We attempted endoscopic and fluoroscopic placement of a stent in the sleeve gastrectomy two days ago, but due to severe adhesions and tethering and immobility of the stomach, we could not negotiate into the distal stomach. Dr. Manzano was doing laparoscopy in consult with us and cut down a lot of adhesions and help to redirect the tip of the stent. The risks were reviewed with the patient including bleeding, medication reaction, perforation, and she elected to proceed. FINDINGS: Endoscopic examination was as before with the GE junction identified at about 35 cm and an Endo clip still at 50 cm with pylorus at about 56 cm. We were able to place a guidewire and then placed a stent over this. We got hung up at the same area we had previously, but Dr. Manzano was able to redirect it with the laparoscopic instruments and then we were able to get into the distal stomach without too much difficulty. Once the stent was deployed, it migrated distally and was essentially abutting the pylorus. We then several times grasped the proximal end of the stent with a rat-tooth forceps and pulled it proximally. When we re-examined the stent at the end of the procedure, the proximal margin was in the lower esophagus a few centimeters in the distal margin was right at the Endoclip at 50 cm that had previously placed giving about 6 cm to the pylorus. I was able to get through the bottom of the stent and through the pylorus and into the proximal duodenum without difficulty. IMPRESSION: Nausea and vomiting after sleeve gastrectomy, status post endoscopic and fluoroscopic placement of metallic stent. RECOMMENDATIONS: Further care per Dr. Manzano. /MODMariam Allen Howell M.D. Record Of [address] [address] NAME: MICH MARIN : 61 STATUS : ADM IN PAT#: [id number] AGE: 51 ADM/REG DATE : 04/17/17 MR#: [id number] REPORT SERV DATE: 04/19/17 DICTATED BY: ALLEN HOWELL DATE: 04/19/17 REPORT STATUS : Draft TRANSCRIBED BY: MODMariam DATE: 04/19/17 / [id number] CC: Doug Puentes M.D.
--- NOTE | ~2017-04-17 | OP ---
Record Of Operation [facility] [address] [place]. [address] NAME: MICH MARIN : 61 STATUS : ADM Wilber PAT#: [id number] AGE: 51 ADM/REG DATE : 04/17/17 MR#: [id number] REPORT SERV DATE: 04/17/17 DICTATED BY: ALLEN HOWELL DATE: 04/17/17 REPORT STATUS : Draft TRANSCRIBED BY: JEWEL DATE: 04/17/17 DATE OF PROCEDURE: 04/17/2017 PROCEDURE: Esophagogastroduodenoscopy with attempted stent placement in the sleeve. INDICATION: Intractable nausea and vomiting after sleeve gastrectomy. MEDICATIONS: General endotracheal anesthesia. COMPLICATIONS: None. HISTORY: See consult note for details. We discussed the procedure in detail including potential risks of bleeding, medication reaction, and perforation. All questions were answered, and she elected to proceed. FINDINGS: The endoscope was passed through the mouth into the oropharynx and down into the esophagus. We examined the esophagus, stomach, and the first and second portions of the duodenum. We measured the pylorus at 56 cm. An Endoclip was paced placed at 50 cm. There was appearance of a pouch in the proximal stomach with a little bit of outlet at about 41 cm from the incisors, and in the GE junction, it was noted 35 cm from the incisors. There was some gastritis in the proximal stomach, but no ulcer or albaro obstruction. A guidewire was placed and the scope was removed over the wire. Despite multiple attempts, we were not able to advance the stent system over the wire. We were using a 28 mm x 15 cm fully covered stent. The path of the wire was extremely sigmoid in nature and that we could get the stent through the GE junction. It was stuck in this pouch and never could make it through that outlet at 41 cm. The stent apparatus was just hitting a wall. Numerous times we removed the stent apparatus and wire and re-examined and noted that there was some mucosal trauma, but no transmural injury. We then replaced the wire and again tried to renegotiate the passage of the stent but we were unable to do so, so the procedure was aborted. IMPRESSION: Technically unable to place a stent in the sleeve. RECOMMENDATIONS: 1. Clear liquids tonight. 2. Gastrografin upper GI in the morning. 3. I am not really sure what else we have to offer right now other than Interventional Radiology placement of a J-tube to try to bridge her to further evaluation at [place]. /JUDIL Allen Howell M.D. Record Of [address] [address] NAME: MICH MARIN : 61 STATUS : ADM Wilber PAT#: [id number] AGE: 51 ADM/REG DATE : 04/17/17 MR#: [id number] REPORT SERV DATE: 04/17/17 DICTATED BY: ALLEN HOWELL DATE: 04/17/17 REPORT STATUS : Draft TRANSCRIBED BY: JEWEL DATE: 04/17/17 / [id number] CC: Doug Puentes M.D.
--- NOTE | ~2017-04-17 | OP ---
Record Of Operation [facility] [address] [place] [address] NAME: MICH MARIN : 61 STATUS : ADM IN PAT#: [id number] AGE: 51 ADM/REG DATE : 04/17/17 MR#: [id number] REPORT SERV DATE: 04/19/17 DICTATED BY: ALICIA RIBERA DATE: 04/19/17 REPORT STATUS : Draft TRANSCRIBED BY: MODMariam DATE: 04/19/17 DATE OF PROCEDURE: PREOPERATIVE DIAGNOSES: Stomach obstruction associated to gastric sleeve kinking and central nausea associated to Meniere disease. POSTOPERATIVE DIAGNOSES: Stomach obstruction associated to gastric sleeve kinking and central nausea associated to Meniere disease. PROCEDURE: Laparoscopic-assisted EGD placement of a stent. SURGEON: Alicia Ribera M.D. STUDY MANAGER: Dr. Allen Howell. ANESTHESIA: General endotracheal. COMPLICATIONS: None. INDICATION OF OPERATION: This patient has been having difficulties on swallowing and has had a lot of central nausea associated to Meniere disease, which has created a lot of irritation on her stomach, sleeve pouch, and proceeded to now wanting to straight that out with a stent, attempted to put the stent endoscopically, was unsuccessful, so we are now doing a laparoscopic-assisted procedure. DESCRIPTION OF PROCEDURE: The patient was taken to the operative room and after adequate general endotracheal anesthesia, was prepped and draped in a sterile manner. We put a total of four 5-mm trocars. Carefully, we put the scope and visualized. There was a lot of adhesions in the upper portion of the stomach, so we started taking adhesions down and then taking adhesions in between the liver and the stomach. All those was done with Harmonic scalpel and also taken some adhesions in between the stomach and the diaphragm and after all that, the stomach looked more straight, then Dr. Howell proceeded to introduce the scope under direct visualization all the way down to the esophagus and the stomach. The stomach looked appropriately narrow, but we were able to pass the scope fairly easily all the way down to the pylorus with no problems and I was guiding the things laparoscopically. Then, we left the wire there. Dr. Howell proceeded to put the stent and he may dictate also a note, but basically he slide the stent through the wire and under elementary assistant teacher on my side, I was able to keep everything straight with laparoscopic graspers and then allow it to determine the distal end of the stent. Under fluoroscopy, we determined the proximal end of the stent. We opened and deployed the [employer] WallFlex stent. Then, we used a 15 cm length, 23 cm wide, but he will dictate under description the exact measurements and then we were able to deploy it and then verified that it was in place. It was a little bit more distal than we want this. We were able to grab the proximal end and then pulled it out, and I was able to visualize the distal line to be in the antrum and up to close to the pylorus, so the stent passed the angle of the incisura and was able to be deployed with no problems to pass the scope, everything looked straight, removed the scope, removed the trocars. We Record Of Operation [address] [address] NAME: MICH MARIN : 61 STATUS : ADM IN [facility]#: [id number] AGE: 51 ADM/REG DATE : 04/17/17 MR#: [id number] REPORT SERV DATE: 04/19/17 DICTATED BY: ALICIA RIBERA DATE: 04/19/17 REPORT STATUS : Draft TRANSCRIBED BY: JEWEL DATE: 04/19/17 closed all the incisions with subcuticular Monocryl 4-0. The patient tolerated the procedure well and did not have any problems. REESE/JEWEL Alicia Herrmann M.D. / [id number] CC: Doug Puentes M.D.
--- NOTE | ~2017-04-17 | CN ---
Consultation Report [facility] [address] [place]. [address] NAME: MICH MARIN : 61 STATUS : ADM Wilber PAT#: [id number] AGE: 51 ADM/REG DATE : 04/17/17 MR#: [id number] REPORT SERV DATE: 04/17/17 DICTATED BY: ALLEN HOWELL DATE: 04/17/17 REPORT STATUS : Draft TRANSCRIBED BY: JEWLE DATE: 04/17/17 INPATIENT CONSULTATION DATE OF CONSULTATION: REASON FOR CONSULTATION: This is a 51-year-old woman, whom I am asked to see for intractable nausea and vomiting after sleeve gastrectomy. HISTORY OF PRESENT ILLNESS: This woman has had a history of gastrointestinal issues including GERD, chronic nausea and mild gastric stasis due to opioid pain medications, and IBS with diarrhea. She had a Lap-Band with band erosion, this was removed, and then she had a sleeve gastrectomy. Since then, she has had intractable nausea and vomiting, and she has been unable to eat or hydrate herself. Despite multiple dilations of the sleeve, she has never really improved. I have been concerned that her problems are more motility related and central, and I had recommended evaluation at tertiary care center. She had an appointment to be seen at [facility] last week, but did not feel well enough to go. After further discussion with Dr. Manzano, stent placement in the sleeve was recommended, and we endeavor to undertake that during this admission. PAST MEDICAL HISTORY: 1. GERD. 2. Chronic nausea and mild gastric stasis due to opioids. 3. IBS with diarrhea. 4. Morbid obesity. 5. Obstructive sleep apnea. 6. Depression/anxiety. 7. Meniere's. 8. Restless legs syndrome. 9. Seasonal allergies. PAST SURGICAL HISTORY: Status post numerous endoscopic procedures, status post Lap-Band placement, status post sleeve gastrectomy, status post laparoscopic hiatal hernia repair, status post x2, status post cervical fusion, status post abdominoplasty, status post breast augmentation, status post bladder suspension. MEDICATIONS: Benadryl, Norflex, Levsin, meclizine, Reglan, Zofran, ProAir, promethazine. ALLERGIES: DARVOCET, DYAZIDE, LORCET, PENICILLIN, PERCOCET. FAMILY HISTORY: Her father has cirrhosis due to HANKINS. SOCIAL HISTORY: She is , and she works for an insurance company. She uses no tobacco and does not abuse alcohol. Her parents are Parmjit and Nany Alex, patients of this practice. Consultation Report [address] [facility] [address] NAME: MICH MARIN : 61 STATUS : ADM Wilber PAT#: [id number] AGE: 51 ADM/REG DATE : 04/17/17 MR#: [id number] REPORT SERV DATE: 04/17/17 DICTATED BY: ALLEN HOWELL DATE: 04/17/17 REPORT STATUS : Draft TRANSCRIBED BY: MODL DATE: 04/17/17 REVIEW OF SYSTEMS: Otherwise, unremarkable for constitutional, endocrine, neurologic, psychiatric, ocular, ENT, pulmonary, cardiovascular, GI, or rheumatologic symptoms, except for as noted above. PHYSICAL EXAMINATION: GENERAL: She is morbidly obese, but in no acute distress. VITAL SIGNS: Afebrile. SKIN: Warm and dry. LUNGS: Clear. ABDOMEN: Soft and nontender. EXTREMITIES: No edema. LABORATORY DATA: Electrolytes: Potassium 3.4, BUN 6, creatinine 0.82. White count 6, hemoglobin 12.8. IMPRESSION: Intractable nausea and vomiting status post sleeve gastrectomy. PLAN: We will go ahead with attempt to place a stent in sleeve later today. /JUDIL Allen Howell M.D. / [id number] CC: Doug Puentes M.D.
--- NOTE | ~2017-04-17 | DS ---
Discharge Summary [facility] [address] [place]. [address] NAME: MICH MARIN : 61 STATUS : DIS IN PAT#: [id number] AGE: 51 ADM/REG DATE : 04/17/17 MR#: [id number] REPORT SERV DATE: 04/25/17 DICTATED BY: ALICIA RIBERA DATE: 04/22/17 REPORT STATUS : Draft TRANSCRIBED BY: MODL DATE: 04/22/17 ADMISSION DATE: 04/17/2017 DISCHARGE DATE: 04/22/2017 ADMITTING DIAGNOSIS: Intractable nausea and vomiting. DISCHARGE DIAGNOSIS: PRIMARY DISCHARGE DIAGNOSIS: Nausea and vomiting, status post gastric stent placement. OTHER DISCHARGE DIAGNOSES: 1. Abdominal pain. 2. Tachycardia. 3. Gastroesophageal reflux disease. 4. Obstructive sleep apnea. CONSULTATION: Allen Howell M.D., Gastroenterology in the Hospitalist Group. PROCEDURES: 1. EGD with unsuccessful placement of metallic gastric stent, 04/17/2017. 2. Laparoscopic-assisted EGD with metallic gastric stent placement, 04/19/2017. COMPLICATIONS: None. HISTORY: Please refer to previously dictated H and P, 04/17/2017. HOSPITAL COURSE: The patient was admitted for IV hydration as well as medication treatment for intractable nausea and vomiting. Dr. Allen Howell attempted metallic gastric stent placement that was unsuccessful on 04/17/2017. We re-attempted this on 04/19/2017 with laparoscopic-assisted gastric stent was successfully placed. The patient was placed on TPN and made n.p.o. Following her first EGD with attempted stent placement, the patient did have a bout of tachycardia. The hospitalist group was consulted which was thought to be related to her ongoing nausea, vomiting, and abdominal pain. EKG showed sinus tachycardia. The patient denied chest pain and shortness of breath. Cultures were performed on the PIC to rule out any infection. Following placement of the stent, her heart rate did eventually return back to normal and is currently stable. Her nausea and vomiting are being controlled through Zofran and Phenergan, although the patient denies vomiting more in the hospital, her nausea continues, but is tolerable. Abdominal pain; at the time of admission, the patient did have complaint of some lower abdominal pain, this is most likely related to her continuous vomiting. Currently, her pain is being controlled through Dilaudid and we do expect some level of discomfort while the gastric stent is in place. GERD; GERD is being treated with PPI. The patient has long history of GERD and is expected during this course of treatment. The patient has a long history of obstructive sleep apnea. This is being managed during her hospital course through O2. The patient denies shortness of breath and has CPAP at home. Chest x-ray was unremarkable and showed satisfactory placement of PICC on the right arm. CBC and serum chemistry were normal. Potassium has stabilized and last draw Discharge Summary [address] [place]. [address] NAME: MICH MARIN : 61 STATUS : DIS IN PAT#: [id number] AGE: 51 ADM/REG DATE : 04/17/17 MR#: [id number] REPORT SERV DATE: 04/25/17 DICTATED BY: ALICIA RIBERA DATE: 04/22/17 REPORT STATUS : Draft TRANSCRIBED BY: JEWEL DATE: 04/22/17 was a level of 4.0. DISCHARGE PLAN: CONDITION UPON DISCHARGE: Stable. The patient will be discharged to home with home health and TPN through [facility]. ACTIVITY: Ambulatory as tolerated. DIET: N.p.o. except home medications, which will need to be in liquid or crushed. DATE OF NEXT APPOINTMENT: The patient will follow up in the office on 04/26/2017. MEDICATIONS AT DISCHARGE: Hydromorphone 1 mg per 1 mL, Zofran 8 mg ODT, Phenergan 25 mg suppositories, Nexium 40 mg granules, Ativan 0.5 mg sublingual. ISSUES TO BE ADDRESSED AT FOLLOWUP: The patient will be seen in the office on 04/26/[address] Alicia Manzano to assess position of gastric stent. We will plan on removal by Dr. Allen Howell the following week. DICTATED BY: FABIOLA Elizabeth DICTATED FOR: Doug Puentes/JEWEL FABIOLA Elizabeth CBN Alicia Ribera M.D. / [id number] CC: Doug Puentes M.D.
--- NOTE | ~2017-04-17 | CN ---
Consultation Report [facility] [address] [place]. [address] NAME: MICH MARIN : 61 STATUS : ADM Wilber PAT#: [id number] AGE: 51 ADM/REG DATE : 04/17/17 MR#: [id number] REPORT SERV DATE: 04/18/17 DICTATED BY: GABY REYNOLDS DATE: 04/18/17 REPORT STATUS : Draft TRANSCRIBED BY: MODL DATE: 04/18/17 CONSULTATION REPORT DATE OF CONSULTATION: 04/17/2017 REASON FOR CONSULTATION: Consulted for elevated heart rate. IDENTIFYING DATA: 1. Primary care physician, Arjun Salter M.D. 2. Neurologist, Dr. Gerson Dorantes in [place] and the patient has also seen Dr. Jose Alfredo Gregory at the [facility] in [place], [place]. 3. Market Development Director, Allen Howell M.D. 4. Surgeon, Win Maxwell M.D. HISTORY OF PRESENT ILLNESS: This is a pleasant, 51-year-old, female, who is being admitted by Dr. Win Maxwell for nausea and vomiting, intractable after a sleeve gastrectomy done in December of 2016. The patient is presently status post EGD with attempted placement of stent and a gastric sleeve that is failed. The patient has a history of gastrointestinal issues including GERD; chronic nausea; small gastric stasis, she does take opioid pain medications; IBS with diarrhea. She previously had a lap band with band erosion, which was removed and then she had a sleeve gastrectomy. Since then, she has had intractable nausea and vomiting. She has been admitted numerous times for the same. She has been unable to eat or hydrate herself despite multiple dilations of the sleeve, she never really improved and is chronically complaining of nausea and vomiting. The patient also has a history of hypertension; genicular neuralgia of the left anterior; obstructive sleep apnea, on home CPAP; and vestibular suppression. She was previously at [facility] approximately two weeks ago for nausea and vomiting as noted and presently she is admitted to [facility] for the same. The Hospitalist Group has been consulted to see the patient relating to an elevated heart rate. A stat EKG was obtained, which notes a sinus tachycardia with a rate at 126 and short p.r.n. interval, otherwise, normal EKG. The patient's history was obtained through careful interview with the patient, coupled with review of [employer], spa consultant notes, and old medical records reviewed. PAST MEDICAL HISTORY: 1. Restless legs syndrome. 2. Meniere disease. 3. Migraines. 4. Renal calculi. 5. Hiatal hernia. 6. Seasonal allergies. 7. Hypertension. Consultation Report [facility] [address] [place]. [address] NAME: MICH MARIN : 61 STATUS : ADM Wilber PAT#: [id number] AGE: 51 ADM/REG DATE : 04/17/17 MR#: [id number] REPORT SERV DATE: 04/18/17 DICTATED BY: GABY REYNOLDS DATE: 04/18/17 REPORT STATUS : Draft TRANSCRIBED BY: JEWEL DATE: 04/18/17 8. Genicular neuralgia of the left that causes left ear pain. 9. Obstructive sleep apnea, on CPAP at home. 10.Irritable bowel syndrome. 11.Vestibular suppression. 12.Seasonal asthma. HOME MEDICATIONS: 1. Sinemet 25/100 mg tablets, one tablet p.o. at bedtime for restless legs syndrome. 2. Benadryl 50 mg IM every eight hours p.r.n. migraines. 3. Marinol 5 mg p.o. daily p.r.n. nausea and vomiting. 4. Dilaudid 2 mg p.o. every 6 hours p.r.n. migraines or ear pain. 5. Antivert 25 mg p.o. twice a day p.r.n. vertigo. 6. Reglan 5 mg p.o. a.c. p.r.n. abdominal spasms or vomiting. 7. Zofran ODT 8 mg p.o. every six hours p.r.n. nausea. 8. Norflex 30 mg IM every 12 hours p.r.n. migraines. 9. Phenergan 25 mg IM every six hours p.r.n. nausea. 10.Phenergan 25 mg suppository per rectal every six hours p.r.n. nausea. 11.Requip 1 mg p.o. every morning for restless legs syndrome. 12.Requip 2 mg p.o. at bedtime for restless legs syndrome. 13.Zofran 8 mg IM every eight hours p.r.n. nausea. ALLERGIES: 1. HYDROCODONE. 2. OXYCODONE. 3. NSAIDS. 4. PROPOXYPHENE. 5. PENICILLIN. 6. CIPRO. SOCIAL HISTORY: The patient is for 14 years, has three children. No tobacco, alcohol, or illicit drug use. Has stairs, but she stays normally on the main level and uses a walker at times because she has balance problems relating to her Meniere disease and vertigo. FAMILY HISTORY: 1. Positive for diabetes and obesity. 2. The patient's mother had arthritis. 3. The patient father has cirrhosis from fatty liver. 4. The patient had one brother, who is , who was shot in a domestic dispute. 5. The patient has one brother who is diabetic and morbidly obese. PAST SURGICAL HISTORY: 1. Cervical spinal fusion in 1996. 2. Abdominal hernia surgery in 2006. 3. Left ear endolymphatic sac decompression on 07/31/2013. Consultation Report [address] [address] NAME: MICH MARIN : 61 STATUS : ADM Wilber PAT#: [id number] AGE: 51 ADM/REG DATE : 04/17/17 MR#: [id number] REPORT SERV DATE: 04/18/17 DICTATED BY: GABY REYNOLDS DATE: 04/18/17 REPORT STATUS : Draft TRANSCRIBED BY: JEWEL DATE: 04/18/17 4. Inguinal hernia repair as a child. 5. Bariatric surgery for a sleeve gastrectomy in 12/23/2016. 6. Lap band surgery in 2002 and in 2006. 7. Thigh lift in 2005. 8. Tummy tuck in 2004. 9. x2 in 1982 and 1988. 10.Tubal ligation. 11.Partial hysterectomy in 2009. 12.Right carpal tunnel surgery, approximately age of [age] years old. 13.Cystopexy in 2011. REVIEW OF SYSTEMS: Negative other than what is in HPI. The patient is presently alert and oriented x3. No shortness of breath. No vomiting presently, but does have nausea consistently. Complains of occasional abdominal pain with the nausea and vomiting. Presently, no abdominal pain. No chest pain. Has low-grade fever up to 100.7, now presently 99.2. No confusion or agitation noted. PHYSICAL EXAMINATION: VITAL SIGNS: From today; blood pressure 145/73, O2 saturation 95% on 2 liters nasal cannula, temperature 99.2, respiratory rate 18, and heart rate on telemetry 117. GENERAL: This is a very pleasant, 51-year-old, female, resting in bed, no acute distress. NEURO: Her head is atraumatic and normocephalic. She is alert and oriented x3. Cranial nerves are intact. Mood is pleasant and appropriate. NECK: Supple. Trachea midline. No JVD. No obvious thyromegaly or lymphadenopathy. EENT: Sclerae are nonicteric. Pupils are equal and reactive to light. Nares patent. Mucous membranes moist. Tongue midline. No deviation. Soft palate rises equally with phonation. CHEST: No pain with palpation. LUNGS: Clear to auscultation bilaterally. She has normal respiratory effort. There is no increased work of breathing with conversation. CARDIOVASCULAR: S1 and S2 with no obvious murmurs, rubs, or gallops. She is on telemetry. Presently, she has a sinus tachycardia with a rate at 122. ABDOMEN: Soft and nontender. The patient does have active bowel sounds. No palpable organomegaly. Last bowel movement was on 04/16/2017. EXTREMITIES: Normal distal pulses. No calf tenderness. No edema. She will have bilateral TEDs and SCDs in place for DVT prophylaxis. SKIN: Warm and dry. No unusual rashes or lesions. Normal color and turgor. PSYCH: The patient is pleasant, cooperative, appropriate mood and affect. LABORATORY DATA: Sodium 140, potassium 3.4, chloride 108, BUN 6, creatinine 0.82, GFR 95, glucose 89, and calcium 9.2. White blood cell 6.0, hemoglobin 12.8, hematocrit 37.5, and platelets 135. On 04/17/2017, the patient had a chest x-ray that showed no acute cardiopulmonary disease and satisfactorily positioned right arm PICC. On 04/17/2017, the Consultation Report [facility] [address] [place]. [address] NAME: MICH MARIN : 61 STATUS : ADM Wilber PAT#: [id number] AGE: 51 ADM/REG DATE : 04/17/17 MR#: [id number] REPORT SERV DATE: 04/18/17 DICTATED BY: GABY REYNOLDS DATE: 04/18/17 REPORT STATUS : Draft TRANSCRIBED BY: JEWEL DATE: 04/18/17 patient had an ECG that showed a sinus tachycardia with a short [place] interval with a rate at 126, otherwise, normal EKG. ASSESSMENT AND PLAN: 1. Tachycardia. The patient is chronically having nausea and vomiting. She has been in and out of the hospital numerous times with the same. EKG does show sinus tachycardia with a rate 126. She is on telemetry. We will increase her IV fluids to 150 an hour for a liter and then resume back down to normal rate. She will have blood cultures x2. She presently has a right arm PICC. We will do one culture through the PICC and one peripherally. We will check a TSH and a free T4 in the a.m. on her labs. 2. Obstructive sleep apnea. The patient is on home CPAP, although presently she has nausea and vomiting, so we will use O2 to keep her saturations 92% or greater and will have continuous O2 saturation monitoring until her nausea and vomiting subsides. 3. Intractable nausea and vomiting. Aware. She also has intermittent abdominal pain at times. She does have Zofran, Phenergan, and Dilaudid ordered p.r.n. as needed. 4. Meniere disease. Aware. This lady has vestibular suppression, genicular neuralgia, Meniere disease, and a history of migraine headaches. She sees a neurologist. We will reassess and continue her medications when she is able to take p.o. Presently. She is n.p.o. and has nausea and vomiting. 5. Gastroesophageal reflux disease with a history of irritable bowel syndrome and a hiatal hernia. Aware. We will continue her daily Protonix. 6. A.m. labs, BMP, magnesium, phosphorus, CBC, urinalysis, blood cultures x2, TSH, free T4, and EKG. 7. The Hospitalist Group would like to thank you for this consultation and let us know if we could be of further assistance. FABIAN Gaby Reynolds NP / [id number] CC: Doug Puentes M.D.
[2017-04-17 11:42] LABS: BASOPHILS 0.5 %; BASOPHILS ABSOLUTE 0.03 10/3/uL (0.0-0.16); EOSINOPHILS 1.2 %; EOSINOPHILS ABSOLUTE 0.07 10/3/uL (0.0-0.53); HEMATOCRIT 37.5 % (36.0-48.0); HEMOGLOBIN 12.8 g/dL (12.0-16.0); IMMATURE GRANULOCYTES 0.3 %; IMMATURE GRANULOCYTES ABSOLUTE 0.02 10/3/uL (0.0-0.11); LYMPHOCYTES 24.3 %; LYMPHOCYTES ABSOLUTE 1.47 10/3/uL (0.67-4.30); MEAN CORPUS HGB CONC 34.1 g/dL (32.0-36.0); MEAN CORPUSCULAR HEMOGLOB 31.5 pg (26.0-34.0); MEAN CORPUSCULAR VOLUME 92.4 fL (80-100); MEAN PLATELET VOLUME 11.4 fL (9.2-13.0); MONOCYTES 5.1 %; MONOCYTES ABSOLUTE 0.31 10/3/uL (0.21-1.20); NEUTROPHILS 68.6 %; NEUTROPHILS ABSOLUTE 4.14 10/3/uL (2.02-8.40); RBC DISTRIBUTION WIDTH 14.2 % (12.0-16.0); RED CELL COUNT 4.06 10/6/uL (4.0-5.6)
[2017-04-17 11:43] LABS: MANUAL DIFF NO %; PLATELET COUNT 135 10/3/uL (150-400)
[2017-04-17 11:56] LABS: BUN (BLOOD UREA NITROGEN) 6 MG/DL (6-23); CALCIUM, SERUM 9.2 MG/DL (8.5-10.4); CHLORIDE, SERUM 108 MMOL/L (96-112); CREATININE 0.82 MG/DL (0.55-1.02); GFR AFRICAN AMERICAN 95 ML/MIN (>=60); GFR NON AFRICAN AMERICAN 82 ML/MIN (>=60); GLUCOSE, SERUM 89 MG/DL (60-99); POTASSIUM, SERUM 3.4 MMOL/L (3.5-5.3); SODIUM, SERUM 140 MMOL/L (135-148)
[2017-04-17 11:57] LABS: CO2 (CARBON DIOXIDE) 24 MMOL/L (24-34)
[2017-04-18 05:25] LABS: BASOPHILS 0.2 %; BASOPHILS ABSOLUTE 0.02 10/3/uL (0.0-0.16); EOSINOPHILS 0.6 %; EOSINOPHILS ABSOLUTE 0.06 10/3/uL (0.0-0.53); HEMATOCRIT 33.8 % (36.0-48.0); HEMOGLOBIN 11.3 g/dL (12.0-16.0); IMMATURE GRANULOCYTES 0.3 %; IMMATURE GRANULOCYTES ABSOLUTE 0.03 10/3/uL (0.0-0.11); LYMPHOCYTES 18.5 %; LYMPHOCYTES ABSOLUTE 1.89 10/3/uL (0.67-4.30); MEAN CORPUS HGB CONC 33.4 g/dL (32.0-36.0); MEAN CORPUSCULAR HEMOGLOB 31.3 pg (26.0-34.0); MEAN CORPUSCULAR VOLUME 93.6 fL (80-100); MEAN PLATELET VOLUME 10.2 fL (9.2-13.0); MONOCYTES 6.2 %; MONOCYTES ABSOLUTE 0.63 10/3/uL (0.21-1.20); NEUTROPHILS 74.2 %; NEUTROPHILS ABSOLUTE 7.59 10/3/uL (2.02-8.40); RBC DISTRIBUTION WIDTH 14.2 % (12.0-16.0); RED CELL COUNT 3.61 10/6/uL (4.0-5.6)
[2017-04-18 05:27] LABS: MANUAL DIFF NO %; PLATELET COUNT 187 10/3/uL (150-400); WHITE BLOOD CELLS 10.2 10/3/uL (4.5-10.5)
[2017-04-18 05:49] LABS: BUN (BLOOD UREA NITROGEN) 4 MG/DL (6-23); CHLORIDE, SERUM 104 MMOL/L (96-112); CO2 (CARBON DIOXIDE) 26 MMOL/L (24-34); FREE T4 1.16 NG/DL (0.76-1.46); GFR AFRICAN AMERICAN 98 ML/MIN (>=60); GFR NON AFRICAN AMERICAN 84 ML/MIN (>=60); GLUCOSE, SERUM 74 MG/DL (60-99); SODIUM, SERUM 139 MMOL/L (135-148)
[2017-04-18 06:27] LABS: ASCORBIC ACID (UR NOT ORDER) NEG (NEG); BILIRUBIN, URINE NEGATIVE (NEG); KETONE, URINE TRACE MG/DL (NEG); LEUKOCYTE ESTERASE(NOT OR TRACE (NEG); WBC (NOT ORDERED) (RFLEX) 4 (0-5)
[2017-04-19 06:55] LABS: BASOPHILS 0.4 %; BASOPHILS ABSOLUTE 0.02 10/3/uL (0.0-0.16); EOSINOPHILS 2.9 %; EOSINOPHILS ABSOLUTE 0.14 10/3/uL (0.0-0.53); HEMOGLOBIN 10.3 g/dL (12.0-16.0); IMMATURE GRANULOCYTES 0.2 %; IMMATURE GRANULOCYTES ABSOLUTE 0.01 10/3/uL (0.0-0.11); LYMPHOCYTES 32.4 %; LYMPHOCYTES ABSOLUTE 1.59 10/3/uL (0.67-4.30); MANUAL DIFF NO %; MEAN CORPUS HGB CONC 33.2 g/dL (32.0-36.0); MEAN CORPUSCULAR HEMOGLOB 31.4 pg (26.0-34.0); MEAN CORPUSCULAR VOLUME 94.5 fL (80-100); MEAN PLATELET VOLUME 9.6 fL (9.2-13.0); MONOCYTES 7.7 %; MONOCYTES ABSOLUTE 0.38 10/3/uL (0.21-1.20); NEUTROPHILS 56.4 %; NEUTROPHILS ABSOLUTE 2.77 10/3/uL (2.02-8.40); PLATELET COUNT 157 10/3/uL (150-400); RBC DISTRIBUTION WIDTH 14.5 % (12.0-16.0); RED CELL COUNT 3.28 10/6/uL (4.0-5.6); WHITE BLOOD CELLS 4.9 10/3/uL (4.5-10.5)
[2017-04-19 07:07] LABS: BUN (BLOOD UREA NITROGEN) 4 MG/DL (6-23); CALCIUM, SERUM 8.6 MG/DL (8.5-10.4); CHLORIDE, SERUM 109 MMOL/L (96-112); CO2 (CARBON DIOXIDE) 27 MMOL/L (24-34); CREATININE 0.72 MG/DL (0.55-1.02); GFR AFRICAN AMERICAN 111 ML/MIN (>=60); GFR NON AFRICAN AMERICAN 96 ML/MIN (>=60); PHOSPHORUS, SERUM 3.6 MG/DL (2.5-4.5); PREALBUMIN 9.8 MG/DL (17.0-43.0); SODIUM, SERUM 143 MMOL/L (135-148)
[2017-04-19 07:08] LABS: GLUCOSE, SERUM 98 MG/DL (60-99); TRIGLYCERIDE 106 MG/DL (< 150)
[2017-04-20 05:30] LABS: CALCIUM, SERUM 8.4 MG/DL (8.5-10.4); CHLORIDE, SERUM 112 MMOL/L (96-112); CO2 (CARBON DIOXIDE) 26 MMOL/L (24-34); CREATININE 0.69 MG/DL (0.55-1.02); GFR AFRICAN AMERICAN 115 ML/MIN (>=60); GFR NON AFRICAN AMERICAN 99 ML/MIN (>=60); SODIUM, SERUM 145 MMOL/L (135-148)
[2017-04-20 05:31] LABS: BUN (BLOOD UREA NITROGEN) 13 MG/DL (6-23); GLUCOSE, SERUM 170 MG/DL (60-99); PHOSPHORUS, SERUM 1.7 MG/DL (2.5-4.5)
[2017-04-21 04:10] LABS: BUN (BLOOD UREA NITROGEN) 16 MG/DL (6-23); CALCIUM, SERUM 8.5 MG/DL (8.5-10.4); CHLORIDE, SERUM 112 MMOL/L (96-112); CO2 (CARBON DIOXIDE) 26 MMOL/L (24-34); CREATININE 0.63 MG/DL (0.55-1.02); GFR AFRICAN AMERICAN 119 ML/MIN (>=60); GFR NON AFRICAN AMERICAN 102 ML/MIN (>=60); POTASSIUM, SERUM 3.6 MMOL/L (3.5-5.3); SODIUM, SERUM 143 MMOL/L (135-148)
[2017-04-21 04:12] LABS: GLUCOSE, SERUM 109 MG/DL (60-99); PHOSPHORUS, SERUM 3.5 MG/DL (2.5-4.5)
[2017-04-22 04:31] LABS: BUN (BLOOD UREA NITROGEN) 11 MG/DL (6-23); CHLORIDE, SERUM 110 MMOL/L (96-112); CO2 (CARBON DIOXIDE) 26 MMOL/L (24-34); CREATININE 0.57 MG/DL (0.55-1.02); GFR AFRICAN AMERICAN 123 ML/MIN (>=60); GFR NON AFRICAN AMERICAN 106 ML/MIN (>=60); GLUCOSE, SERUM 140 MG/DL (60-99); PHOSPHORUS, SERUM 3.1 MG/DL (2.5-4.5); SODIUM, SERUM 142 MMOL/L (135-148)
[2017-04-22] MEDS ORDERED: PHENERGAN 2525 MG/M1 IM (13:04)
[2017-04-22] MEDS ORDERED: DIL1INJ PO (13:13)
[2017-04-22] MEDS ORDERED: PREV30 PO (13:16)
[2017-04-22] MEDS ORDERED: ATV.5 PO (13:16)
[2017-05-02] MEDS ORDERED: PROAIR HFA INH (11:34)
[2017-05-02] MEDS ORDERED: DIL4TAB PO (11:37)
[2017-05-02] MEDS ORDERED: DIL2AMP IM (11:39)
== END 2017-04-22 15:40 | disposition home health service (06) | DRG 328 ==
LOC: 2SO 09:34
PROVIDERS: Internal Medicine Gastroenterology; Nurse Practitioner; Nurse Practitioner Family; Surgery
PROC: 0DN64ZZ Release Stomach, Percutaneous Endoscopic Approach (ICD-10-PCS; 2017-04-17)
PROC: 0DJ08ZZ Inspection of Upper Intestinal Tract, Via Natural or Artificial Opening Endoscopic (ICD-10-PCS; 2017-04-17)
PROC: 0D778DZ Dilation of Stomach, Pylorus with Intraluminal Device, Via Natural or Artificial Opening Endoscopic (ICD-10-PCS; 2017-04-19)
PROC: 0D7 Gastrointestinal System, Dilation (ICD-10-PCS; principal; 2017-04-19 15:15)
DX: K95.89 Other complications of other bariatric procedure (principal); Z99.81 Dependence on supplemental oxygen; K29.70 Gastritis, unspecified, without bleeding; H81.09 Meniere's disease, unspecified ear; I10 Essential (primary) hypertension; R11.2 Nausea with vomiting, unspecified; K66.0 Peritoneal adhesions (postprocedural) (postinfection); M79.2 Neuralgia and neuritis, unspecified; G47.33 Obstructive sleep apnea (adult) (pediatric); F32.9 Major depressive disorder, single episode, unspecified; F41.9 Anxiety disorder, unspecified; G25.81 Restless legs syndrome; H92.02 Otalgia, left ear; K44.9 Diaphragmatic hernia without obstruction or gangrene; R00.0 Tachycardia, unspecified; E66.9 Obesity, unspecified; Z98.84 Bariatric surgery status; Z88.0 Allergy status to penicillin; Z88.1 Allergy status to other antibiotic agents; Z88.5 Allergy status to narcotic agent; Z88.8 Allergy status to other drugs, medicaments and biological substances; Z83.3 Family history of diabetes mellitus; Z82.61 Family history of arthritis; Z98.890 Other specified postprocedural states; Z68.34 Body mass index [BMI] 34.0-34.9, adult; Y73.3 Surgical instruments, materials and gastroenterology and urology devices (including sutures) associated with adverse incidents; Y92.009 Unspecified place in unspecified non-institutional (private) residence as the place of occurrence of the external cause
CPT/HCPCS: 36569; 71010; 74240; 76000; 76001; 80048; 80053; 81001; 82330; 82962; 83735; 84100; 84132; 84134; 84439; 84443; 84478; 85025; 87040; 93005; 96366; A9270-GY; C1751; C1769; C1874; C9113; J0330; J0690; J1170; J2250; J2405; J2550; J2710; J2765; J3010; J3370; J3411; J3475; Q9967